=== PATIENT | male | born 1945 | race Caucasian/White ===

== ENCOUNTER 2016-11-04 11:31 | Inpatient (IN) | payer OTHER ==
[~2016-11-04] VITALS: Ht 177.8 cm; Wt 85.0 kg
[2016-11-04] MEDS ORDERED: SODIUM CHLORIDE 0.9% 1000ML 1,000 ML IV STA (11:39)
[2016-11-04 12:34] LABS: BASO % 0.3 %; BASO ABS # 0.03 K/uL (0-0.2); COMPLETE YES; EOS % 2.3 %; HEMATOCRIT 45.9 % (42-52); IG% 0.6 %; LYMPH % 29.5 %; LYMPH ABS # 3.11 K/uL (1.2-3.4); MEAN CELL VOLUME 86.4 fL (80-100); MEAN CORPUSCULAR HEMOGLOBIN 30.5 pg (25-34); MEAN CORPUSCULAR HGB CONC 35.3 g/dl (32-36); MEAN PLATELET VOLUME 9.8 fL (7.4-10.4); MONO % 6.8 %; NEUT % 60.5 %; PLATELET COUNT 254 K/uL (130-400); RED BLOOD COUNT 5.31 M/uL (4.7-6.1); WHITE BLOOD COUNT 10.54 K/uL (4.8-10.8)
[2016-11-04 12:43] LABS: PARTIAL THROMBOPLASTIN RATIO 1.2; PROTHROMBIN TIME (PATIENT) 10.5 SECONDS (9.0-12.0)
[2016-11-04 12:58] LABS: BUN/CREATININE RATIO 11.3 (10-20); CREATININE 1.5 mg/dl (0.60-1.40); THYROID STIMULATING HORMONE 1.87 uIu/ml (0.300-4.500)
[2016-11-04 13:08] LABS: BETA-HYDROXYBUTYRATE 1.19 mg/dL (0.2-2.81)
[2016-11-04] MEDS ORDERED: PIPERACILLIN/TAZOBACTAM 4.5 GM/100ML D5W IV STA (13:12)
--- NOTE | 2016-11-04 13:20 | DIAGNOSTIC IMAGING REPORT ---
LEFT FOOT 3 VIEWS CLINICAL HISTORY: Cellulitis. Pain and swelling. FINDINGS: 3 views of left foot are obtained. No prior studies are available for comparison at the time of dictation. The skeletal structures are osteopenic. No fracture is seen. There is no bony erosion or periostitis. Mild arthritic change is noted at the first metatarsophalangeal joint. Enthesophyte is noted the base of the fifth metatarsal. There is a large dorsal calcaneal enthesophyte. Atherosclerotic calcification is observed in the regional arteries. Mild soft tissue swelling is suggested in the forefoot. IMPRESSION: 1. Osteopenia, mild degenerative change, and dorsal heel spur as above. No acute bony abnormality is identified in the left foot. 2. Mild soft tissue swelling is noted in the forefoot and there is advanced atherosclerotic calcification of the regional arteries. Electronically signed by: Oscar Bishop M.D. 11/04/2016 1:18 PM Dictated Date/Time: 11/04/2016 1:17 PM
--- NOTE | 2016-11-04 13:31 | DIAGNOSTIC IMAGING REPORT ---
CT SCAN OF THE BRAIN WITHOUT IV CONTRAST CLINICAL HISTORY: Change in mental status. COMPARISON STUDY: No priors. TECHNIQUE: Unenhanced axial CT scan of the brain is performed from the vertex to the skull base. CT DOSE: 614.27 mGy.cm FINDINGS: Brain parenchyma: There are age-related involutional changes noting minimal subcortical and periventricular microangiopathic change. There is no hemorrhage, mass effect, or evidence of acute territorial ischemia by CT criteria. Ferguson-white matter is preserved. No extra-axial fluid collection is seen. Ventricles, sulci, cisterns: Prominent secondary to involutional change. Intracranial vasculature: There is atherosclerotic calcification of the cavernous carotid and vertebral arteries. Calvarium: Unremarkable. Sinuses and mastoids: The visualized paranasal sinuses are clear. The mastoid air cells are well pneumatized. Orbits: The bony orbits are grossly intact. IMPRESSION: There is no hemorrhage, mass effect, or evidence of acute territorial ischemia by CT criteria. Electronically signed by: Oscar Bishop M.D. 11/04/2016 1:29 PM Dictated Date/Time: 11/04/2016 1:27 PM
[2016-11-04] MEDS ORDERED: MULTTAB58 PO (13:34)
[2016-11-04] MEDS ORDERED: OMEG10007 PO (13:34)
[2016-11-04] MEDS ORDERED: THIA50TA3 PO (13:34)
[2016-11-04] MEDS ORDERED: NovoLIN-R INSULIN PER UNIT CHARGE IV STA (15:05)
--- NOTE | 2016-11-04 15:54 | DIAGNOSTIC IMAGING REPORT ---
ULTRASOUND LEFT LOWER EXTREMITY VENOUS CLINICAL HISTORY: Left leg swelling and erythema. COMPARISON STUDY: No priors. TECHNIQUE: Real-time, grayscale, and color Doppler sonography of the deep veins of the left lower extremity was performed from the inguinal crease to the calf. Compression and augmentation were utilized. FINDINGS: There is no sonographic evidence of deep venous thrombosis identified in the left lower extremity. The common femoral, superficial femoral, and popliteal veins are patent and normally compressible. The greater saphenous vein and the profunda femoris vein at the junction with the common femoral vein are clear. The visualized calf veins are patent. IMPRESSION: There is no sonographic evidence of deep venous thrombosis identified in the left lower extremity. Electronically signed by: Oscar Bishop M.D. 11/04/2016 3:52 PM Dictated Date/Time: 11/04/2016 3:52 PM
--- NOTE | 2016-11-04 16:10 | History and Physical ---
History & Physical Date & Time of Service: Nov 04, 2016 at 16:09 Chief Complaint: Infected Foot/Confusion Primary Care Physician: No Doctor, Assigned Past Medical/Surgical History Medical Problems: (1) Diabetes Status: Chronic Family History Patient reports no known family medical history. Social History Smoking Status: Never Smoker Allergies Coded Allergies: No Known Allergies (Unverified , 11/04/16) Home Medications Scheduled Fish Oil ([place]-3), 1 CAP PO DAILY Multiple Vitamin (Multivitamin), 1 TAB PO DAILY Thiamine Hcl (Vitamin B-1), 50 MG PO DAILY Physical Exam Vital Signs Date Time Temp Pulse Resp B/P Pulse Ox O2 Delivery O2 Flow Rate FiO2 11/04/16 13:49 73 20 150/88 94 11/04/16 12:33 75 20 171/97 94 11/04/16 12:22 96 Room Air 11/04/16 11:34 36.7 85 18 169/93 95 Room Air Diagnostics Laboratory Results Results Past 24 Hours Test 11/04/16 12:05 Range/Units White Blood Count 10.54 4.8-10.8 K/uL Red Blood Count 5.31 4.7-6.1 M/uL Hemoglobin 16.2 14.0-18.0 g/dL Hematocrit 45.9 42-52 % Mean Corpuscular Volume 86.4 80-100 fL Mean Corpuscular Hemoglobin 30.5 25-34 pg Mean Corpuscular Hemoglobin Concent 35.3 32-36 g/dl Platelet Count 254 130-400 K/uL Mean Platelet Volume 9.8 7.4-10.4 fL Neutrophils (%) (Auto) 60.5 % Lymphocytes (%) (Auto) 29.5 % Monocytes (%) (Auto) 6.8 % Eosinophils (%) (Auto) 2.3 % Basophils (%) (Auto) 0.3 % Neutrophils # (Auto) 6.38 1.4-6.5 K/uL Lymphocytes # (Auto) 3.11 1.2-3.4 K/uL Monocytes # (Auto) 0.72 0.11-0.59 K/uL Eosinophils # (Auto) 0.24 0-0.5 K/uL Basophils # (Auto) 0.03 0-0.2 K/uL RDW Standard Deviation 38.7 36.4-46.3 fL RDW Coefficient of Variation 12.2 11.5-14.5 % Immature Granulocyte % (Auto) 0.6 % Immature Granulocyte # (Auto) 0.06 0.00-0.02 K/uL Prothrombin Time 10.5 9.0-12.0 SECONDS Prothromb Time International Ratio 1.0 0.9-1.1 Activated Partial Thromboplast Time 30.2 21.0-31.0 SECONDS Partial Thromboplastin Ratio 1.2 Sodium Level 137 136-145 mmol/L Potassium Level 4.0 3.5-5.1 mmol/L Chloride Level 98 98-107 mmol/L Carbon Dioxide Level 31 21-32 mmol/L Anion Gap 8.0 3-11 mmol/L Blood Urea Nitrogen 17 7-18 mg/dl Creatinine 1.50 0.60-1.40 mg/dl Est Creatinine Clear Calc Drug Dose 46.6 ml/min Estimated GFR () 53.5 Estimated GFR (Non- 46.2 BUN/Creatinine Ratio 11.3 10-20 Random Glucose 469 70-99 mg/dl Calcium Level 9.0 8.5-10.1 mg/dl Magnesium Level 2.0 1.8-2.4 mg/dl Total Bilirubin 0.7 0.2-1 mg/dl Direct Bilirubin 0.1 0-0.2 mg/dl Aspartate Amino Transf (AST/SGOT) 15 15-37 U/L Alanine Aminotransferase (ALT/SGPT) 28 12-78 U/L Alkaline Phosphatase 110 45-117 U/L Total Protein 7.8 6.4-8.2 gm/dl Albumin 3.5 3.4-5.0 gm/dl Lipase 212 73-393 U/L Beta-Hydroxybutyric Acid 1.19 0.2-2.81 mg/dL Thyroid Stimulating Hormone (TSH) 1.870 0.300-4.500 uIu/ml Microbiology Results 11/04/16 Blood Culture, Received Pending 11/04/16 Blood Culture, Received Pending Impression VTE Prophylaxis VTE Risk Assessment Done? Y/N: Yes Risk Level: Moderate
--- NOTE | 2016-11-04 16:13 | DIAGNOSTIC IMAGING REPORT ---
ULTRASOUND LEFT LOWER EXTREMITY ARTERIAL CLINICAL HISTORY: Left leg swelling and erythema. COMPARISON STUDY: No priors. TECHNIQUE: Real-time, grayscale, and color Doppler sonography of the arteries of the left lower extremity is performed from the inguinal crease to the foot. Ankle-brachial indices were not assessed due to the presence of arterial thrombus. FINDINGS: Moderate echogenic shadowing atherosclerotic plaque is seen throughout the arteries of the left lower extremity. There are triphasic arterial waveforms in the left common femoral artery with velocities measuring up to 91 cm/s. The left profundus femoris artery is patent with velocities measuring up to 100 cm/s. Triphasic arterial waveforms are seen in the proximal and mid portions of the superficial femoral artery. Velocities proximally measure up to 106 cm/s, and velocities in the midportion measure up to 75 cm/s. There are monophasic arterial waveforms in the distal superficial femoral artery with diminished velocities measuring up to 48 cm/s. There is complete thrombosis identified throughout the popliteal artery. No flow is seen within the posterior tibial artery. Branch collateral vessels supply the anterior tibial and peroneal arteries which appear patent with diminished flow and monophasic arterial waveforms. Velocities in the peroneal and anterior tibial arteries measure up to 24 cm/s. The dorsalis pedis artery is patent with velocities measuring up to 11 cm/s. IMPRESSION: 1. 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 2. There are monophasic waveforms with diminished flow within the anterior tibial and peroneal arteries which are supplied by collateral vessels and patent to the ankle. See above discussion. Dictated: 11/04/2016 3:52 PM Transcribed: 11/04/2016 4:12 PM [email or web address] Electronically signed by: Oscar Bishop M.D. 11/04/2016 4:31 PM Dictated Date/Time: 11/04/2016 3:52 PM
[2016-11-04] MEDS ORDERED: MAGNESIUM HYDROXIDE SUSP 30 ML UDC PO PRN (16:15)
[2016-11-04] MEDS ORDERED: ONDANSETRON INJ 2 MG/ML 2 ML VIAL IV PRN (16:15)
[2016-11-04] MEDS ORDERED: GLUCOSE 10 TABS/TUBE PO PRN (16:15)
[2016-11-04] MEDS ORDERED: GLUCOSE 40% GEL 15 GM TUBE PO PRN (16:15)
[2016-11-04] MEDS ORDERED: GLUCAGON FOR INJ 1 MG VIAL SQ PRN (16:15)
[2016-11-04] MEDS ORDERED: DEXTROSE 50% 50 ML SYR IV PRN (16:15)
[2016-11-04] MEDS ORDERED: ALUMINUM/MAGNESIUM/SIMETH (MAALOX MAX) 30 ML UDC PO PRN (16:15)
[2016-11-04] MEDS ORDERED: ZOLPIDEM TARTRATE 5 MG TAB PO PRN (16:15)
[2016-11-04] MEDS ORDERED: PHARMACY GLYCEMIC MGMT CONSULT PRN (16:27)
[2016-11-04] MEDS ORDERED: POLYETHYLENE (MIRALAX) 17 GM PACK PO PRN (16:30)
[2016-11-04] MEDS ORDERED: NovoLIN-R INSULIN PER UNIT CHARGE SQ STA (16:36)
[2016-11-04 16:45] VITALS: O2SAT 97; BMI 26.9
[2016-11-04] MEDS ORDERED: ASPIRIN 81 MG ECTAB PO STA (16:57)
--- NOTE | 2016-11-04 17:11 | Pharmacy Progress Note ---
Glycemic Control Intl Consult Date of Service Nov 04, 2016. Scope Glycemic Pharmacist consulted by Dr Finch on 11/04/16 for glycemic control and to write orders per [facility] inpatient glycemic control protocol Objective Weight (Kilograms): 85.000 Accuchecks BSG (last 24hrs): Test 11/04/16 12:05 Random Glucose 469 mg/dl (70-99) Laboratory Data (last 24hrs) Test 11/04/16 12:05 Anion Gap 8.0 mmol/L BUN/Creatinine Ratio 11.3 Blood Urea Nitrogen 17 mg/dl Creatinine 1.50 mg/dl Potassium Level 4.0 mmol/L Sodium Level 137 mmol/L White Blood Count 10.54 K/uL Red Blood Count 5.31 M/uL Hemoglobin 16.2 g/dL Hematocrit 45.9 % Mean Corpuscular Volume 86.4 fL Mean Corpuscular Hemoglobin 30.5 pg Mean Corpuscular Hemoglobin Concent 35.3 g/dl Platelet Count 254 K/uL Mean Platelet Volume 9.8 fL Neutrophils (%) (Auto) 60.5 % Lymphocytes (%) (Auto) 29.5 % Monocytes (%) (Auto) 6.8 % Eosinophils (%) (Auto) 2.3 % Basophils (%) (Auto) 0.3 % Neutrophils # (Auto) 6.38 K/uL Lymphocytes # (Auto) 3.11 K/uL Monocytes # (Auto) 0.72 K/uL Eosinophils # (Auto) 0.24 K/uL Basophils # (Auto) 0.03 K/uL HbA1c Test 11/04/16 12:05 Pending Recent Pertinent Medications Outpatient Anti-diabetic Regimen: * N/A The patient is currently ordered/receiving: * Basal insulin: Lantus 15 units every 12 hours * Correctional Insulin: REGULAR Insulin per scale ACHS Goal Range: Low 100 mg/dL - High 140 mg/dL Correction Factor: 20 mg/dL/unit * Prandial insulin: Per carb ratio of 1 unit per 15 grams CHO consumed Risk Factors for Insulin Resistance: * Infection * Diet Assessment & Plan ASSESSMENT: * 71yo T2DM male with unknown degree of outpatient control. Presuming that outpatient control is poor based on significantly elevated blood sugar and non- adherence with outpatient regimen. * Pt with severe hyperglycemia on admission secondary to uncontrolled diabetes, stress, and infection. No hyperglycemic crisis identified- Pt will just need SQ basal bolus insulin regimen while admitted to control hyperglycemia. Will make discharge recs for outpatient regimen once A1c results * Pt is insulin naive therefore will utilize weight/stress based dosing and titrate based on BSG trends. * Pt is ordered Regular insulin for bolus coverage --> will change to NovoLog d /t faster onset and shorter duration. This will help control post-prandial BSGs more effectively and prevent stacking. * Pt ordered bolus of IV regular insulin in the ED (6units) * IV insulin has a very fast onset and offset - this dosing will need followed with either an IV insulin infusion or SQ bolus to prevent immediate rebound hyperglycemia * ADA & AACE recommend a goal blood sugar range 140-180 mg/dl for the majority of critically ill & non-critically ill patients. However, more stringent targets may be selected in individual cases. Will utilize more stringent goal of 110-140mg/dl based on patient age & minimal comorbidities. Additionally, tighter glycemic control is warranted to facilitate wound/infection healing. PLAN FOR INPATIENT GLYCEMIC CONTROL: * Basal insulin with LANTUS 15 units SQ BID - start first dose JEFFREY to prevent re-bound hyperglycemia when IV bolus from ED wears off * Change to NovoLog insulin per scale ACHS or Q6hrs while NPO. * Goal Range: Low 110 mg/dL - High 140 mg/dL * Correction Factor: 30 mg/dL/unit * Nutritional / Prandial insulin per carb ratio of 1 unit per 10 grams CHO consumed * Check A1c * Recommend diabetes education &/or nutritional counseling * Please note that the plan above was derived based on current level of insulin resistance and hospital stress. These recommendations are appropriate for inpatient admission only. Plan of care upon discharge will need to be reassessed to avoid potential outpatient hypo/hyperglycemia. Thank you.
--- NOTE | 2016-11-04 17:11 | EMERGENCY ROOM VISIT NOTE ---
History Report prepared by Jayro: Leoncio Alatorre Under the Supervision of: Dr. Nitin Contreras M.D. First contact with patient: 11:39 Chief Complaint: INFECTION Stated Complaint: INFECTED FOOT/CONFUSION History of Present Illness The patient is a 71 year old male who presents to the Emergency Room with complaints of worsening left foot erythema for the past two weeks. The patient also notes swelling and numbness of the foot but denies pain. The patient's states that he has been limping for the past week. The patient's is also concerned that he has been experiencing increased confusion over the past 4 months. He has also been short of breath with exertion lately. The patient has a history of diabetes but has not checked his sugars or taken any medications for the past five years. He does not have a family doctor. Patient denies LOC, headache, fevers, chills, diaphoresis, visual changes, neck pain, chest pain, nausea, vomiting, abdominal pain, new back pain, melena, hematochezia, urinary symptoms, weakness, lymphadenopathy, or other complaints. Source of History: patient, spouse/significant other Onset: two weeks ago Position: foot (left) Quality: other (erythematous) Timing: worsening Associated Symptoms: + numbness Review of Systems See HPI for pertinent positives and negatives. A total of ten systems were reviewed and were otherwise negative. Past Medical & Surgical Medical Problems: (1) Diabetes (2) Hyperglycemia Family History Patient reports no known family medical history. Social History Smoking Status: Never Smoker Marital Status: Housing Status: lives with family Current/Historical Medications Scheduled Fish Oil (Priddy-3), 1 CAP PO DAILY Multiple Vitamin (Multivitamin), 1 TAB PO DAILY Thiamine Hcl (Vitamin B-1), 50 MG PO DAILY Allergies Coded Allergies: No Known Allergies (Unverified , 11/04/16) Physical Exam Vital Signs Date Time Temp Pulse Resp B/P Pulse Ox O2 Delivery O2 Flow Rate FiO2 11/04/16 16:45 97 Room Air 11/04/16 16:31 70 97 11/04/16 16:30 160/86 11/04/16 16:29 160/95 11/04/16 15:01 67 14 96 11/04/16 15:00 136/88 11/04/16 14:31 67 20 94 11/04/16 14:30 147/87 11/04/16 14:01 68 16 94 11/04/16 14:00 137/82 11/04/16 13:49 73 20 150/88 94 11/04/16 13:35 150/88 11/04/16 12:33 75 20 171/97 94 11/04/16 12:22 96 Room Air 11/04/16 11:34 36.7 85 18 169/93 95 Room Air Physical Exam GENERAL: Awake, alert, well-appearing, in no distress HENT: Normocephalic, atraumatic. Oropharynx unremarkable. EYES: Normal conjunctiva. Sclera non-icteric. NECK: Supple. No nuchal rigidity. FROM. No JVD. RESPIRATORY: Clear to auscultation. CARDIAC: Regular rate, normal rhythm. Extremities warm and well perfused. Pulses equal. ABDOMEN: Soft, non-distended. No tenderness to palpation. No rebound or guarding. No masses. RECTAL: Deferred. MUSCULOSKELETAL: Chest examination reveals no tenderness. The back is symmetrical on inspection without obvious abnormality. There is no CVA tenderness to palpation. No joint edema. LOWER EXTREMITIES: Erythema of the left foot and left lower leg. Skin breakdown left great toe with thickening of the left great toenail. NEURO: Normal sensorium. No sensory or motor deficits noted. SKIN: No rash or jaundice noted. Medical Decision & Procedures ER Provider Diagnostic Interpretation: X ray results as stated below per my interpretation and radiologist interpretation. Other radiology results as stated below per my review and radiologist interpretation LEFT FOOT 3 VIEWS CLINICAL HISTORY: Cellulitis. Pain and swelling. FINDINGS: 3 views of left foot are obtained. No prior studies are available for comparison at the time of dictation. The skeletal structures are osteopenic. No fracture is seen. There is no bony erosion or periostitis. Mild arthritic change is noted at the first metatarsophalangeal joint. Enthesophyte is noted the base of the fifth metatarsal. There is a large dorsal calcaneal enthesophyte. Atherosclerotic calcification is observed in the regional arteries. Mild soft tissue swelling is suggested in the forefoot. IMPRESSION: 1. Osteopenia, mild degenerative change, and dorsal heel spur as above. No acute bony abnormality is identified in the left foot. 2. Mild soft tissue swelling is noted in the forefoot and there is advanced atherosclerotic calcification of the regional arteries. Electronically signed by: Oscar Bishop M.D. 11/04/2016 1:18 PM Dictated Date/Time: 11/04/2016 1:[address] SCAN OF THE BRAIN WITHOUT IV CONTRAST CLINICAL HISTORY: Change in mental status. COMPARISON STUDY: No priors. TECHNIQUE: Unenhanced axial CT scan of the brain is performed from the vertex to the skull base. CT DOSE: 614.27 mGy.cm FINDINGS: Brain parenchyma: There are age-related involutional changes noting minimal subcortical and periventricular microangiopathic change. There is no hemorrhage, mass effect, or evidence of acute territorial ischemia by CT criteria. Ferguson-white matter is preserved. No extra-axial fluid collection is seen. Ventricles, sulci, cisterns: Prominent secondary to involutional change. Intracranial vasculature: There is atherosclerotic calcification of the cavernous carotid and vertebral arteries. Calvarium: Unremarkable. Sinuses and mastoids: The visualized paranasal sinuses are clear. The mastoid air cells are well pneumatized. Orbits: The bony orbits are grossly intact. IMPRESSION: There is no hemorrhage, mass effect, or evidence of acute territorial ischemia by CT criteria. Electronically signed by: Oscar Bishop M.D. 11/04/2016 1:29 PM Dictated Date/Time: 11/04/2016 1:27 PM ULTRASOUND LEFT LOWER EXTREMITY VENOUS CLINICAL HISTORY: Left leg swelling and erythema. COMPARISON STUDY: No priors. TECHNIQUE: Real-time, grayscale, and color Doppler sonography of the deep veins of the left lower extremity was performed from the inguinal crease to the calf. Compression and augmentation were utilized. FINDINGS: There is no sonographic evidence of deep venous thrombosis identified in the left lower extremity. The common femoral, superficial femoral, and popliteal veins are patent and normally compressible. The greater saphenous vein and the profunda femoris vein at the junction with the common femoral vein are clear. The visualized calf veins are patent. IMPRESSION: There is no sonographic evidence of deep venous thrombosis identified in the left lower extremity. Electronically signed by: Oscar Bishop M.D. 11/04/2016 3:52 PM Dictated Date/Time: 11/04/2016 3:52 PM Laboratory Results 11/04/16 12:05 Red Blood Count 5.31, Mean Corpuscular Volume 86.4, Mean Corpuscular Hemoglobin 30.5, Mean Corpuscular Hemoglobin Concent 35.3, Mean Platelet Volume 9.8, Neutrophils (%) (Auto) 60.5, Lymphocytes (%) (Auto) 29.5, Monocytes (%) (Auto) 6.8, Eosinophils (%) (Auto) 2.3, Basophils (%) (Auto) 0.3, Neutrophils # (Auto) 6.38, Lymphocytes # (Auto) 3.11, Monocytes # (Auto) 0.72, Eosinophils # (Auto) 0.24, Basophils # (Auto) 0.03 11/04/16 12:05 Test 11/04/16 12:05 White Blood Count 10.54 K/uL (4.8-10.8) Red Blood Count 5.31 M/uL (4.7-6.1) Hemoglobin 16.2 g/dL (14.0-18.0) Hematocrit 45.9 % (42-52) Mean Corpuscular Volume 86.4 fL (80-100) Mean Corpuscular Hemoglobin 30.5 pg (25-34) Mean Corpuscular Hemoglobin Concent 35.3 g/dl (32-36) Platelet Count 254 K/uL (130-400) Mean Platelet Volume 9.8 fL (7.4-10.4) Neutrophils (%) (Auto) 60.5 % Lymphocytes (%) (Auto) 29.5 % Monocytes (%) (Auto) 6.8 % Eosinophils (%) (Auto) 2.3 % Basophils (%) (Auto) 0.3 % Neutrophils # (Auto) 6.38 K/uL (1.4-6.5) Lymphocytes # (Auto) 3.11 K/uL (1.2-3.4) Monocytes # (Auto) 0.72 K/uL (0.11-0.59) Eosinophils # (Auto) 0.24 K/uL (0-0.5) Basophils # (Auto) 0.03 K/uL (0-0.2) RDW Standard Deviation 38.7 fL (36.4-46.3) RDW Coefficient of Variation 12.2 % (11.5-14.5) Immature Granulocyte % (Auto) 0.6 % Immature Granulocyte # (Auto) 0.06 K/uL (0.00-0.02) Prothrombin Time 10.5 SECONDS (9.0-12.0) Prothromb Time International Ratio 1.0 (0.9-1.1) Activated Partial Thromboplast Time 30.2 SECONDS (21.0-31.0) Partial Thromboplastin Ratio 1.2 Anion Gap 8.0 mmol/L (3-11) Est Creatinine Clear Calc Drug Dose 46.6 ml/min Estimated GFR () 53.5 Estimated GFR (Non- 46.2 BUN/Creatinine Ratio 11.3 (10-20) Calcium Level 9.0 mg/dl (8.5-10.1) Magnesium Level 2.0 mg/dl (1.8-2.4) Total Bilirubin 0.7 mg/dl (0.2-1) Direct Bilirubin 0.1 mg/dl (0-0.2) Aspartate Amino Transf (AST/SGOT) 15 U/L (15-37) Alanine Aminotransferase (ALT/SGPT) 28 U/L (12-78) Alkaline Phosphatase 110 U/L (45-117) Total Protein 7.8 gm/dl (6.4-8.2) Albumin 3.5 gm/dl (3.4-5.0) Lipase 212 U/L (73-393) Beta-Hydroxybutyric Acid 1.19 mg/dL (0.2-2.81) Thyroid Stimulating Hormone (TSH) 1.870 uIu/ml (0.300-4.500) Laboratory results reviewed by me Medications Administered Medications (Trade) Dose Ordered Sig/Familia Route Start Time Stop Time Status Last Admin Dose Admin Sodium Chloride (Nss 1000ml) 1,000 ml @ 125 mls/hr Q8H STAT IV 11/04/16 11:39 11/04/16 19:38 11/04/16 12:47 125 MLS/HR Piperacillin Sod/ Tazobactam Sod (Zosyn Iv) 4.5 gm NOW STAT IV 11/04/16 13:12 11/04/16 13:13 DC 11/04/16 13:36 4.5 GM Insulin Human Regular (novoLIN-R U-100 PER UNIT) 6 units NOW STAT IV 11/04/16 15:05 11/04/16 15:07 DC 11/04/16 16:27 6 UNITS ECG Indication: SOB/dyspnea Rate (beats per minute): 78 Rhythm: normal sinus Findings: Q waves (anterior, lateral, and inferior leads), no acute ischemic change, left axis deviation ED Course 1138: The patient was evaluated by the medical student. The case was discussed with her. 1139: NSS 1000 ml @ 125 mls/hr, 1225: The patient was evaluated in room C5. A complete history and physical exam was performed. 1312: Zosyn 4.5 gm IV. 1430: Updated the patient. 1505: Insulin Human Regular 6 units IV. 1517: Discussed the case with Karena Paulson. The patient will be evaluated. Medical Decision Triage Nursing notes reviewed. The patient's presentation and history were concerning for leg swelling and pain. Etiologies such as cellulitis, abscess, MRSA infection, dermatitis, drug eruption,necrotizing fasciitis, DVT as well as others were entertained. the patient was evaluated. Clinically he was doing relatively well. He had some redness and discoloration to the left leg. He did have pulses that they were diminished. He has no clear ulceration but does have some skin breakdown on the left great toe. X-ray imaging did not reveal any evidence of osteomyelitis. Peripheral artery disease was noted. He underwent ultrasound imaging. He has peripheral artery disease noted on ultrasound imaging. No DVT noted. The patient was found to have a normal CBC and chemistry panel except for severe hyperglycemia. He was hydrated and given IV insulin. The patient has cellulitis. He was given IV Zosyn. He will need further evaluation and management. He also has untreated diabetes. Consultation was made with internal medicine. The patient was evaluated in the Emergency Room for further management. The chart was completed utilizing [employer] Speech voice recognition software. Grammatical errors, random word insertions, pronoun errors, and incomplete sentences are an occasional consequence of this system due to software limitations, ambient noise, and hardware issues. Any formal questions or concerns about the content, text, or information contained within the body of this dictation should be directly addressed to the physician for clarification. Consults Time Called: 1509 Consulting Physician: Karena Paulson Returned Call: [phone]: Discussed the case with Karena Paulson. The patient will be evaluated. Impression Primary Impression: Cellulitis of left lower extremity Additional Impressions: Confusion Hyperglycemia PAD (peripheral artery disease) Scribe Attestation The scribe's documentation has been prepared under my direction and personally reviewed by me in its entirety. I confirm that the note above accurately reflects all work, treatment, procedures, and medical decision making performed by me. Departure Information Dispostion Being Evaluated By Hospitalist Referrals No Doctor, Assigned (PCP) Patient Instructions My [facility] Problem Qualifiers
[2016-11-04] MEDS ORDERED: PIPERACILL/TAZOBAC CONSULT ACTIVE PRN (17:30)
[2016-11-04] MEDS ORDERED: ASPI-435 PO (17:32)
[2016-11-04] MEDS ORDERED: SODIUM CHLORIDE 0.9% 1000ML 1,000 ML IV ONE (18:00)
[2016-11-04] MEDS ORDERED: HydrALAZINE HCL 20 MG/ML VIAL IV. PRN (18:00)
[2016-11-04] MEDS ORDERED: INSULIN GLARGINE SOLOSTAR 100 UNITS/ML 3 ML PEN SC SCH (18:00)
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
[2016-11-04 18:32] VITALS: BP 172/69; PULSE 69; TEMP 36.7; O2SAT 95
[2016-11-04] MEDS: INSULIN ASPART 100 UNITS/ML 3 ML PEN SC SCH ×2 (18:51→23:26)
[2016-11-04 18:59] VITALS: O2SAT 95
--- NOTE | 2016-11-04 19:10 | DIAGNOSTIC IMAGING REPORT ---
SINGLE VIEW CHEST CLINICAL HISTORY: Dyspnea. FINDINGS: An AP, portable, upright chest radiograph is obtained. No prior studies are available for comparison at the time of dictation. The examination is degraded by portable technique and patient rotation. The cardiomediastinal silhouette is unremarkable. Nonspecific interstitial thickening is identified. There is bibasilar atelectasis. No airspace consolidation is seen typical for pneumonia and there is no large pleural effusion. No pneumothorax is seen. The skeletal structures are osteopenic. The bony thorax is grossly intact. IMPRESSION: No acute cardiopulmonary abnormality. Electronically signed by: Oscar Bishop M.D. 11/04/2016 7:07 PM Dictated Date/Time: 11/04/2016 7:06 PM
[2016-11-04] MEDS: PIPERACILL/TAZOBAC IV 3.375 GM in DEXTROSE 5% 100ML 100 ML IV SCH (20:47)
[2016-11-04] MEDS: HEPARIN SOD 5000 UNIT/0.5 ML CARP SQ SCH (20:52)
[2016-11-04] MEDS: ACETAMINOPHEN 325 MG TAB PO PRN (20:59)
[2016-11-05] VITALS: O2SAT 95
[2016-11-05 00:15] VITALS: BP 156/91; PULSE 71; TEMP 36.7; O2SAT 96
[2016-11-05 02:13] LABS: URINE APPEARANCE CLEAR (CLEAR); URINE BILIRUBIN NEG (NEG); URINE COLOR YELLOW; URINE EPITHELIAL CELL AUTO 0-5 /lpf (0-5); URINE NITRITE NEG (NEG); URINE PH 6.5 (4.5-7.5); URINE SPECIFIC GRAVITY 1.028 (1.000-1.030); UROBILINOGEN NEG (NEG)
[2016-11-05 02:14] LABS: MANUAL MICROSCOPIC REQUIRED? NO; REVIEW REQ? NO
[2016-11-05] MEDS: PIPERACILL/TAZOBAC IV 3.375 GM in DEXTROSE 5% 100ML 100 ML IV SCH ×2 (03:02→10:10)
[2016-11-05] MEDS: HEPARIN SOD 5000 UNIT/0.5 ML CARP SQ SCH ×3 (05:27→21:23)
[2016-11-05 07:00] VITALS: BP 162/96; PULSE 66; TEMP 36.6; O2SAT 96
[2016-11-05 07:02] LABS: HEMATOCRIT 43.4 % (42-52); MEAN CORPUSCULAR HEMOGLOBIN 30.6 pg (25-34); MEAN CORPUSCULAR HGB CONC 34.8 g/dl (32-36); MEAN PLATELET VOLUME 9.8 fL (7.4-10.4); PLATELET COUNT 222 K/uL (130-400); RED BLOOD COUNT 4.93 M/uL (4.7-6.1); WHITE BLOOD COUNT 8.78 K/uL (4.8-10.8)
[2016-11-05 07:20] LABS: BUN/CREATININE RATIO 13.3 (10-20); CALCIUM 8.6 mg/dl (8.5-10.1); CREATININE 1.1 mg/dl (0.60-1.40); POTASSIUM 4.1 mmol/L (3.5-5.1)
[2016-11-05 07:23] LABS: CHOLESTEROL/HDL RATIO 4.5
[2016-11-05] MEDS: ASPIRIN 81 MG ECTAB PO SCH (07:30)
[2016-11-05] MEDS: THIAMINE HCL 50 MG TAB PO SCH (07:30)
[2016-11-05] MEDS: OMEGA-3 (PURIFIED FISH OIL) 1 GM CAP PO SCH (07:30)
[2016-11-05] MEDS: AMLODIPINE BESYLATE 5 MG TAB PO SCH (07:30)
[2016-11-05] MEDS: MULTIVITAMIN TAB PO SCH (07:30)
[2016-11-05 08:00] VITALS: O2SAT 96
[2016-11-05] MEDS ORDERED: ASPIRIN 81 MG ECTAB PO SCH (08:00)
[2016-11-05 08:21] LABS: ESTIMATED AVERAGE GLUCOSE 283 mg/dl; HA1C FLAG Normal (Normal)
[2016-11-05] MEDS ORDERED: INSULIN GLARGINE SOLOSTAR 100 UNITS/ML 3 ML PEN SC SCH ×3 (09:00→21:00)
[2016-11-05] MEDS: INSULIN ASPART 100 UNITS/ML 3 ML PEN SC SCH ×4 (09:02→21:11)
--- NOTE | 2016-11-05 10:35 | Surgery Consultation ---
Consultation Date of Service Nov 05, 2016. Chief Complaint L great toe wound, PAD History of Present Illness The patient is a 71 year old male admitted with L great toe infection and PAD noted on US, seen in consultation today. Pt states he recently got a new pair of boots, but his size was not available, so he got a larger size which caused his foot to move around and he developed this wound on his L great toe. Denies claudication while walking his 2 dogs at least a mile, nor while walking on [place]. States he is typically a very active person. Denies rest pain or other nonhealing wounds. States his toe/foot was swollen, but is significantly improved. Denies SALAZAR, fever, chills, chest pain, SOB, abd pain, N/V, rest pain, claudication, other complaints. US demonstrates likely popliteal occlusion with monophasic distal runoff. Vitals Vital Signs Past 12 Hours Date Time Temp Pulse Resp B/P Pulse Ox O2 Delivery O2 Flow Rate FiO2 11/05/16 08:00 96 Room Air 11/05/16 07:00 36.6 66 18 162/96 96 Room Air 11/05/16 00:15 36.7 71 20 156/91 96 Room Air 11/05/16 00:00 95 Room Air Allergies Coded Allergies: No Known Allergies (Unverified , 11/04/16) Home Medications Scheduled Aspirin (Aspirin 81), 81 MG PO DAILY Fish Oil ([place]-3), 1 CAP PO DAILY Multiple Vitamin (Multivitamin), 1 TAB PO DAILY Thiamine Hcl (Vitamin B-1), 50 MG PO DAILY Problem List Medical Problems: (1) DM type 2 (diabetes mellitus, type 2) (2) Dyslipidemia (3) History of positive PPD (4) HTN (hypertension) (5) Hyperglycemia Surgical Problems: (1) No significant past surgical history Surgical / Medical History Hx Cardiac Surgery: No Hx Abdominal Surgery: No Hx Cancer Surgery: No Hx Thoracic Surgery: No Hx Orthopedic: No Hx Urinary Tract Surgery: No HX Other Surgery: Yes (tonsillectomy) Family History FH: CAD (coronary artery disease) FATHER FH: stroke FATHER Social History Smoking Status: Former Smoker Hx Tobacco Use In Past Year?: No (quit about 20 years ago) Hx Alcohol Use - Type & Amnt: Yes (6 to 7 beers a week) Hx Substance Use -Type & Amnt: No Review of Systems Constitutional: No chills, No fever, No malaise Skin: + change in color Eyes: No visual changes ENMT: No sore throat Respiratory: No POLK, No cough, No hemoptysis, No short of breath Cardiovascular: + edema, No chest pain, No intermittent claudication, No palpitations, No syncope Gastrointestinal: No abdominal pain, No nausea, No vomiting Neurologic: No dizziness, No headache, No lethargy, No numbness, No tingling Physical Exam Constitutional: General Apperance: heathly-appearing, well-nourished, well-developed Level of Distress: NAD Psychiatric: Mental Status: active & alert, normal mood, normal affect Orientation: oriented except where noted, to time, to place, to person Memory: recent memory normal, remote memory normal Head: normocephalic, atraumatic Eyes: EOM: EOMI ENMT: normal ENT inspection, hearing grossly normal Neck: supple, trachea midline Lungs: Respiratory effort: no dyspnea Auscultation: no wheezing, no rales/crackles, no rhonchi, decreased breath sounds Cardiovascular: Apical Impulse: not displaced Heart Auscultation: RRR, no rubs, no gallops Peripheral Pulses: Pulses: full and equal, in all extremities except if noted Bruits: none appreciated Carotid Pulse: normal on the left, normal on the right Brachial Pulses: normal on the left, normal on the right Radial Pulse: normal on the left, normal on the right Femoral Pulse: normal on the left, normal on the right Popliteal Pulse: doppler Posterior Tibialis Pulse: pertinent finding (monophasic LLE, biphasic RLE) Dorsalis Pedis Pulse: pertinent finding (LLE monophasic, RLE biphasic) Abdomen: Bowel Sounds: normal Inspection & Palpation: soft, non-distended, no tenderness, guarding & rebound Musculoskeletal: normal strength (5/5 throughout), normal tone Extremities: Upper Right: no cyanosis, no edema, no varicosities Upper Left: no cyanosis, no edema, no varicosities Lower Right: no cyanosis, no edema, no varicosities, no palpable cord, no ulcers Lower Left: pertinent finding (L great toe with distal fluid filled blisters and erythema, cracked skin over punctate purple lesion. brisk cap refill.) Neurologic: Cranial Nerves: grossly intact Sensation: grossly intact Assessment and Plan ASSESSMENT and PLAN: L great toe infection PAD Pt appears asymptomatic from PAD. Pt discussed with Dr Grimm, does not recommend vascular surgical intervention at this time. Recommend local wound care and abx. Will reevaluate in office in 2 weeks. Please call if needed.
[2016-11-05] MEDS ORDERED: PERFLUTREN LIPID MICROSPHERE (DEFINITY) IV ONE (11:42)
[2016-11-05 13:32] VITALS: Ht 177.8 cm; Wt 85.0 kg
--- NOTE | 2016-11-05 14:35 | Pharmacy Progress Note ---
Glycemic Control: Progress Nt Date of Service Nov 05, 2016. Scope Glycemic Pharmacist consulted by Dr Finch on 11/04/16 for glycemic control and to write orders per [facility] inpatient glycemic control protocol. Objective Accuchecks BSG (last 24hrs): Test 11/04/16 17:34 11/04/16 18:35 11/04/16 20:00 11/04/16 22:05 Bedside Glucose 185 mg/dl (70-99) 197 mg/dl (70-99) 247 mg/dl (70-99) 238 mg/dl (70-99) Test 11/05/16 06:24 11/05/16 07:30 11/05/16 11:56 Random Glucose 224 mg/dl (70-99) Bedside Glucose 226 mg/dl (70-99) 211 mg/dl (70-99) Laboratory Data (last 24hrs) HbA1c: Test 11/04/16 12:05 Hemoglobin A1c 11.5 % (4.5-5.6) H Recent Pertinent Medications Outpatient Anti-diabetic Regimen: * N/A The patient is currently ordered/receiving: * Basal insulin: Lantus 15 units every 12 hours * Correctional Insulin: NovoLog Insulin per scale ACHS Goal Range: Low 100 mg/dL - High 140 mg/dL Correction Factor: 20 mg/dL/unit * Prandial insulin: Per carb ratio of 1 unit per 6 grams CHO consumed Risk Factors for Insulin Resistance: * Infection * Diet Assessment & Plan ASSESSMENT: * 71yo T2DM male with poor outpatient control per recent A1c = 11.5% today. Pt will need antidiabetic regimen at discharge. Pt has failed metformin in the past. Based on significantly elevated A1c pt will need combination injectable therapy. * Patient is currently receiving ~67 units of insulin over the past 24hrs * 35 units of basal insulin * 32 units of prandial/correctional insulin * BSGs ranging 197 - 238 over the past 24hrs * Anticipating insulin regimen will need increase for the next 24hrs, but then may need decreased for discharge * AM Fasting BSG = 226mg/dl which is above goal range therefore Basal insulin needs increased * Post-prandial BSGs are elevated/BSGs rise throughout the day therefore Tighten CF/CR * ADA & AACE recommend a goal blood sugar range 140-180 mg/dl for the majority of critically ill & non-critically ill patients. However, more stringent targets may be selected in individual cases. Will utilize more stringent goal of 110-140mg/dl based on patient age & minimal comorbidities. Additionally, tighter glycemic control is warranted to facilitate wound/infection healing. PLAN FOR INPATIENT GLYCEMIC CONTROL: * INCREASE Basal insulin with LANTUS 20 units SQ BID, continue to titrate based on fasting BSG * Will convert to once daily dosing for easy outpatient dosing to increase compliance * TIGHTEN NovoLog insulin per scale ACHS or Q6hrs while NPO. * Goal Range: Low 110 mg/dL - High 140 mg/dL * Correction Factor: 20 mg/dL/unit * Nutritional / Prandial insulin per carb ratio of 1 unit per 6 grams CHO consumed * Will recommend NovoLog fixed dosing with the largest meal(s) of the day for outpatient use * Add A1c to discharge instructions to be communicated to PCP for further antidiabetic regimen adjustments post-discharge. * Recommend diabetes education &/or nutritional counseling * Please note that the plan above was derived based on current level of insulin resistance and hospital stress. These recommendations are appropriate for inpatient admission only. Plan of care upon discharge will need to be reassessed to avoid potential outpatient hypo/hyperglycemia. Thank you.
[2016-11-05] MEDS: ACETAMINOPHEN 325 MG TAB PO PRN (15:44)
[2016-11-05 15:53] VITALS: BP 132/82; PULSE 68; TEMP 36.8; O2SAT 95
[2016-11-05 16:00] VITALS: O2SAT 95
--- NOTE | 2016-11-05 16:16 | ECHOCARDIOGRAM REPORT ---
*NOTICE TO RECEIVING [employer] This information is strictly Confidential and protected under [place] law. [place] law prohibits you from making any further disclosure of this information unless further disclosure is expressly permitted by the written consent of the person to whom it pertains or is authorized by law. A general authorization for the release of medical or other information is not sufficient for this purpose. Hospital accepts no responsibility if the information is made available to any other person, INCLUDING THE PATIENT. Interpretation Summary * Name: RADHA NIELSON Study Date: 11/05/2016 10:50 AM BP: 156/91 mmHg * Patient [facility]: [facility]\S\[id number] HR: 71 * : 1945 (M/d/yyyy) Gender: Male Height: 70 in * Age: 71 yrs Ethnicity: [place] Weight: 187 lb * Ordering Physician: Amber Ghotra * Referring Physician: Self, Referred * Performed By: Raul Zacarias RCS * * Reason For Study: POLK * BSA: 2.0 m2 * -- Conclusions -- * Normal LV chamber size and wall thickness. * Mildly reduced LV systolic function, EF 45-50%. * Moderate hypokinesis of the mid anteroseptal and anterior mcconnell along with the apex. * Grade I diastolic dysfunction. * Aortic valve sclerosis mild, without significant aortic valvular stenosis. * Mild left atrial enlargement. Procedure Details * A complete two-dimensional transthoracic echocardiogram was performed (2D, M-mode, Doppler and color flow Doppler). * A contrast injection of Definity was performed to improve assessment of LV function. * Contrast was injected into an intravenous site in the right arm. * One vial of Definity ultrasound contrast was diluted in normal saline to a total volume of 10 ml. A total of '2' ml of solution was administered during imaging. * Lot # [id number] of Definity utilized for procedure. * Expiration date . * The attending nurse who injected the contrast agent was Walter Tatum RN. Left Ventricle * The left ventricle is normal in size. * There is no thrombus. * There is normal left ventricular wall thickness. * Ejection Fraction = 45-50%. * Left ventricular systolic function is mildly reduced. * Moderate hypokinesis of the mid anteroseptal and anterior mcconnell along with the apex. Right Ventricle * The right ventricular cavity size is normal (basal dimension <4.2 cm in right ventricular apical 4-chamber view). * The right ventricular systolic function is normal as assessed by tricuspid annular plane systolic excursion (TAPSE) (normal >1.5 cm). Atria * The left atrium is mildly dilated. * Right atrial size is normal. Mitral Valve * There is moderate mitral annular calcification. * Mitral stenosis is absent. * There is no mitral regurgitation noted. Tricuspid Valve * The tricuspid valve is normal in structure and function. Aortic Valve * The aortic valve is trileaflet. * Aortic valve sclerosis mild, without significant aortic valvular stenosis. * There is no significant aortic regurgitation. Pulmonic Valve * The pulmonary valve is not well seen, but the Doppler examination is normal without significant regurgitation or stenosis. Great Vessels * The aortic root is normal size. Pericardium/Pleural * There is no pericardial effusion. Left Ventricular Diastolic Function * Grade I diastolic dysfunction, (abnormal relaxation pattern). MMode 2D Measurements and Calculations IVSd 0.97 cm IVSs 1.2 cm LVIDd 4.2 cm LVIDs 3.0 cm LVPWd 1.0 cm LVPWs 1.4 cm IVS/LVPW 0.93 FS 28.3 % EDV(Teich) 77.2 ml ESV(Teich) 34.7 ml EF(Teich) 55.0 % EDV(cubed) 72.4 ml ESV(cubed) 26.7 ml EF(cubed) 63.1 % % IVS thick 27.9 % % LVPW thick 33.9 % LV mass(C)d 136.5 grams LV mass(C)dI 67.3 grams/m\S\2 LV mass(C)s 126.2 grams LV mass(C)sI 62.2 grams/m\S\2 CO(Teich) 3.1 l/min CI(Teich) 1.5 l/min/m\S\2 SV(Teich) 42.5 ml SI(Teich) 20.9 ml/m\S\2 CO(cubed) 3.3 l/min CI(cubed) 1.6 l/min/m\S\2 SV(cubed) 45.7 ml SI(cubed) 22.5 ml/m\S\2 Ao root diam 3.9 cm Ao root area 11.7 cm\S\2 ACS 1.4 cm LA dimension 4.6 cm LA/Ao 1.2 LVAd ap4 50.1 cm\S\2 LVLd ap4 10.1 cm EDV(MOD-sp4) 203.0 ml LVAs ap4 34.5 cm\S\2 LVLs ap4 8.9 cm ESV(MOD-sp4) 110.0 ml EF(MOD-sp4) 45.8 % LVAd ap2 43.5 cm\S\2 LVLd ap2 10.1 cm EDV(MOD-sp2) 150.0 ml LVAs ap2 29.9 cm\S\2 LVLs ap2 9.2 cm ESV(MOD-sp2) 79.0 ml EF(MOD-sp2) 47.3 % CO(MOD-sp4) 6.8 l/min CI(MOD-sp4) 3.3 l/min/m\S\2 SV(MOD-sp4) 93.0 ml SI(MOD-sp4) 45.8 ml/m\S\2 CO(MOD-sp2) 5.2 l/min CI(MOD-sp2) 2.6 l/min/m\S\2 SV(MOD-sp2) 71.0 ml SI(MOD-sp2) 35.0 ml/m\S\2 Doppler Measurements and Calculations MV E max abbey 53.3 cm/sec MV A max abbey 106.6 cm/sec MV E/A 0.50 MV P1/2t max abbey 55.3 cm/sec MV P1/2t 81.7 msec MVA(P1/2t) 2.7 cm\S\2 MV dec slope 198.2 cm/sec\S\2 MV dec time 0.24 sec Ao V2 max 118.4 cm/sec Ao max PG 6.8 mmHg PA V2 max 89.5 cm/sec PA max PG 3.2 mmHg TR max abbey 191.1 cm/sec
--- NOTE | 2016-11-05 17:53 | Progress Note ---
Internal Med Progress Note Date of Service: Nov 05, 2016. Provider Documentation: SUBJECTIVE: feels much better today energy has improved, no confusion , awake/alert , full orientation no pain or discomfort on left toe no fever or chills able ambulate independently OBJECTIVE: Vital Signs-as noted below Exam: General-no sign of distress, comfortable , conversing Eyes-sclera non icteric Lungs-CTA Heart-regular S1/S2 Abdomen-soft, non tender Extremities-left great toe tip small darkened area with surround erythema - improved since yesterday , no drainage Neuro-no focal deficit Lab data as noted below. ASSESSMENT & PLAN: HYPERGLYCEMIA/TYPE 2 DM -NOT ON MEDS; presented with BSG > 400 , no evidence of DKA , normal Hco3 /anion gap , normal BHB -given IV Insulin 6 units in ED -pharmacy consulted for glycemic control appreciate input -Basal insulin dose adjusted -insulin SSI - Hb A1 ~11 -BSG improved after initiation of insulin sliding scale and Basal Lantus software quality analyst consulted , appreciate in out FLORENTINO: resolved due to above follow PRP , avoid NSAID 's /contrast studies when possible LEFT LOWER EXT /TOE CELLULITIS : no evidence of sepsis normal white count , no fever was treated with empiric abx with Zosyn blood /wound culture negative growth appreciate input form wound care nursing HTN : BP elevated on admission added low dose Norvasc will benefit with low dose ACEI once renal function improves PERIPHERAL VASCULAR DISEASE Arterial Doppler of lower ext : 1. 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 Cont ASA vascular surgery consult requested appreciate input had good pulse , no hx of intermittent claudication or resting foot pain as per Dr Barrera no vascular surgical intervention needed at this time. Recommend local wound care and abx. follow up in office in 2 weeks. Fasting lipid panel shows : elevated T chol/TG added Lipitor CONFUSION ; resolved , conversing appropriately possible metabolic encephalopathy due to dehydration , infection , hyperglycemia CT head negative for acute change POLK /SOB /OCCASIONAL CHEST HEAVINESS ; symptom has resolved EKG no evidence of acute ischemia cardiac markers negative ; Cxray -no evidence of cardiac or pulmonary disease possible due to deconditioning , FLORENTINO ECHO : normal Lv function ,no wall motion abnormality IVF to correct dehydration PT/OT eval appreciated stable to be return home FULL CODE DVT PROPHYLAXIS : moderate risk subq heparin DISPOSITION : lives at home with supportive does not have any family physician appointment scheduled with Dr Lion at [facility] will benefit from Home health visiting nurse Social service consulted for discharge planning possible discharge home tomorrow if medically stable Vital Signs: Lab Results:
[2016-11-05] MEDS: ATORVASTATIN 20 MG TAB PO SCH ×2 (21:11→21:34)
[2016-11-06] VITALS: O2SAT 97
[2016-11-06 00:10] VITALS: BP 141/81; PULSE 63; TEMP 36.9; O2SAT 97
[2016-11-06] MEDS: HEPARIN SOD 5000 UNIT/0.5 ML CARP SQ SCH ×2 (06:19→14:16)
[2016-11-06 07:06] VITALS: BP 170/90; PULSE 69; TEMP 36.7; O2SAT 96
[2016-11-06 07:08] LABS: BUN/CREATININE RATIO 16.1 (10-20); CALCIUM 8.9 mg/dl (8.5-10.1); CREATININE 0.95 mg/dl (0.60-1.40); POTASSIUM 3.9 mmol/L (3.5-5.1)
[2016-11-06] MEDS: OMEGA-3 (PURIFIED FISH OIL) 1 GM CAP PO SCH (07:38)
[2016-11-06] MEDS: THIAMINE HCL 50 MG TAB PO SCH (07:38)
[2016-11-06] MEDS: AMLODIPINE BESYLATE 5 MG TAB PO SCH (07:39)
[2016-11-06] MEDS: ASPIRIN 81 MG ECTAB PO SCH (07:39)
[2016-11-06] MEDS: MULTIVITAMIN TAB PO SCH (07:39)
[2016-11-06] MEDS: ACETAMINOPHEN 325 MG TAB PO PRN (07:41)
--- NOTE | 2016-11-06 07:41 | Pharmacy Progress Note ---
Glycemic: Assessment & Plan Date of Service Nov 06, 2016. Assessment & Plan ASSESSMENT: * Pt has received 66units of insulin over the past 24hrs which is yielding adequate control today * BSGs 211, 159,137, 128 over the past 24hrs. * BSGs trending downwards now that Lantus is approaching steady state. * Pt to D/C home today & will need inpatient regimen simplified for outpatient use. * A1c = 11.5% on 11/04/16 Pt will need combination injectable therapy in addition to healthy eating, weight control, increased physical activity, and diabetes education. PLAN FOR DISCHARGE: * Continue basal insulin with Lantus but convert to once daily dosing. * Pt is currently receiving Lantus 15 units SQ BID --> Will hold dose this AM and give full 24hr dose today @ 1200. Will slightly reduce to Lantus 25 units SQ daily. Pt can continue Lantus 25units SQ daily in AM on 11/07/16 * Simplify NovoLog to 10 units SQ daily with the largest meal of the day. * Pt to check BSG first thing in the morning while fasting prior to giving Lantus and prior to largest meal of the day when NovoLog is given. * Administer 1/2 of insulin dose if BSG is less than 90mg/dl Prescriptions Needed * Lantus Pen * NovoLog Pen * Insulin Pen [place] * Strips and Lancets Strips/Lancets Brand Name * Freestyle Lite
[2016-11-06] MEDS ORDERED: LISINOPRIL 2.5 MG TAB PO SCH (08:00)
[2016-11-06] MEDS: INSULIN ASPART 100 UNITS/ML 3 ML PEN SC SCH ×2 (08:16→12:33)
[2016-11-06] MEDS ORDERED: INSULIN GLARGINE SOLOSTAR 100 UNITS/ML 3 ML PEN SC SCH ×2 (09:00→12:00)
--- NOTE | 2016-11-06 14:10 | Discharge Instructions ---
Discharge Instructions Date of Service Nov 06, 2016. Admission Reason for Admission: Hyperglycemia Discharge Discharge Diagnosis / Problem: POORLY CONTROLLED DIABETES /PERIPHERAL VASCUALR DISEASE Discharge Goals Goal(s): Increase independence, Improve disease control, Diagnostic testing, Therapeutic intervention Activity Recommendations Activity Limitations: resume your previous activity . Instructions / Follow-Up Instructions / Follow-Up HOSPITAL FOLLOW UP ON 11/09/2016 @ 1:[address] Nikko Orlando, DO Internal Medicine [facility] FOLLOW UP WITH VASCULAR SURGERY DR PERALES IN 2-3 WEEKS, PLEASE REQUEST REFERRAL FORM DR ORLANDO FOR VASCULAR FOLLOW UP APPOINTMENT NEW MEDICATIONS : NORVASC 2.5 MG DAILY /LISINOPRIL 2.5 MG DAILY -FOR BLOOD PRESSURE LIPITOR 40 MG DAILY -FOR HIGH CHOLESTEROL YOUR CHOLESTEROL LEVEL NEEDS TO BE CHECKED IN NEXT 6 MONTHS INSULIN PEN: LANTUS 25 U SUBCUTANEOUSLY ( UNDER THE SKIN ) IN THE MORNING PLEASE CHECK BLOOD SUGAR FIRST THING IN THE MORNING ( BEFORE BREAKFAST ) PRIOR TO GIVING LANTUS ADMINISTER 1/2 DOSE OF INSULIN IF BLOOD SUGAR LESS THAN 90 MG/DL INSULIN NovoLog ( SHORT ACTING ) 10 U SUBCUTANEOUSLY ( UNDER THE SKIN ) BEFORE THE BIGGEST MEAL OF THE DAY PLEASE CHECK BLOOD SUGAR PRIOR TO GIVING INSULIN ADMINISTER 1/2 DOSE OF INSULIN IF BLOOD SUGAR LESS THAN 90 MG/DL BLOOD SUGAR CHECKS : FASTING ( BEFORE BREAKFAST ) BEFORE EACH MEAL AND BEFORE BED TIME PLEASE KEEP LOG OF THE BLOOD SUGAR READING AND BRING TO YOUR PHYSICIAN OFFICE IN EACH APPOINTMENT YOU WILL NEED YEARLY EYE EXAM DIABETIC FOOT EXAM WITH EACH CLINIC VISIT Current Hospital Diet Patient's current hospital diet: Diabetes Type 2 Diet Discharge Diet Recommended Diet: Diabetes Type 2 Diet Pending Studies Studies pending at discharge: yes List of pending studies: BASIC METABOLIC PANEL IN 1 WEEK HB A1C IN 3 MONTHS FASTING LIPID PROFILE IN 6 MONTHS Laboratory Results Hemoglobin A1c Test 11/04/16 12:05 Range/Units Estimated Average Glucose 283 mg/dl Hemoglobin A1c 11.5 H 4.5-5.6 % Lipid Panel Test 11/05/16 06:24 Range/Units Triglycerides Level 198 H 0-150 mg/dl Cholesterol Level 210 H 0-200 mg/dl HDL Cholesterol 47 mg/dl Cholesterol/HDL Ratio 4.5 LDL Cholesterol, Calculated 123 mg/dl Medical Emergencies . Who to Call and When: Medical Emergencies: If at any time you feel your situation is an emergency, please call 911 immediately. . Non-Emergent Contact Non-Emergency issues call your: Primary Care Provider . . "Provider Documentation" section prepared by Nayla Finch. VTE Core Measure Inpt VTE Proph given/why not?: Unfractionated heparin SQ
[2016-11-06] MEDS ORDERED: NRV5 PO (14:16)
[2016-11-06] MEDS ORDERED: NVLGI/PEN SC (14:16)
[2016-11-06] MEDS ORDERED: LSN25 PO (14:16)
[2016-11-06] MEDS ORDERED: INSDGIPEN SC (14:16)
[2016-11-06] MEDS ORDERED: CIPR250T5 PO (14:44)
[2016-11-06 14:46] VITALS: BP 170/90; PULSE 69; TEMP 36.7; O2SAT 96
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
== END 2016-11-06 15:06 | disposition home health service (06) | DRG 299 ==
LOC: ENRESERVTM → ENRESERVDT → C.EDB 11:32 → C.MS4W 16:08
PROVIDERS: ADMIT Hospitalist; ATTEND Hospitalist
DX: E11.51 Type 2 diabetes mellitus with diabetic peripheral angiopathy without gangrene (principal); G93.41 Metabolic encephalopathy; N17.9 Acute kidney failure, unspecified; E11.65 Type 2 diabetes mellitus with hyperglycemia; E11.628 Type 2 diabetes mellitus with other skin complications; L03.032 Cellulitis of left toe; R06.00 Dyspnea, unspecified; E86.0 Dehydration; I10 Essential (primary) hypertension; E78.00 Pure hypercholesterolemia, unspecified; E78.5 Hyperlipidemia, unspecified; R53.81 Other malaise; F03.90 Unspecified dementia, unspecified severity, without behavioral disturbance, psychotic disturbance, mood disturbance, and anxiety; Z91.14 Patient's other noncompliance with medication regimen; Z87.891 Personal history of nicotine dependence; Z79.82 Long term (current) use of aspirin

== ENCOUNTER 2017-01-04 05:15 | Day surgery (SDC) | payer OTHER ==
[~2017-01-04] VITALS: Ht 180.3 cm; Wt 89.0 kg
[2017-01-04] VITALS (12 sets, daily range): BP systolic 111–157; BP diastolic 60–82; PULSE 59–80; TEMP 36.5–36.7; O2SAT 95–98; Ht 180.3 cm; Wt 89.0 kg
[~2017-01-04 05:15] MED LIST: ASPI-435 PO; CIPR250T5 PO; INSDGIPEN SC; LSN25 PO; MULTTAB58 PO; NRV5 PO; NVLGI/PEN SC; OMEG10007 PO; THIA50TA3 PO
[2017-01-04] MEDS ORDERED: CEFAZOLIN 1000MG/55 ML D5W IV SCH (06:00)
[2017-01-04] MEDS ORDERED: CEFAZOLIN 2000 MG/60 ML D5W 60 ML IV SCH (06:00)
[2017-01-04] MEDS ORDERED: SODIUM CHLORIDE 0.9% 1000ML IV SCH (06:00)
--- NOTE | 2017-01-04 06:05 | History and Physical ---
History & Physical Date of Service Jan 04, 2017. History & Physical CC: Left great toe wound and arterial disease HPI: Mr. Adela Ortega is a 71-year-old gentleman with history of type 2 diabetes, hyperlipidemia, hypertension, peripheral vascular disease who is being seen in consultation for evaluation of a nonhealing left great toe wound. The patient was recently admitted to [facility] on October, with a left great toe wound and infection. The patient said that this all started when he was wearing a new pair of boots that were 1 size too large for him. He was rubbing his foot along the bottom of the shoe and developed a wound. This became infected and he had some altered mental status. For this reason, his took him to the emergency department at [facility] for further evaluation. He was admitted and placed on IV antibiotics. He was seen during that hospitalization by Vascular Surgery after getting a left lower extremity arterial duplex which showed a left popliteal and posterior tibial occlusion, as well as some SFA disease. He has since been discharged and has been following at the wound care center. His wound is improved, but has not completely healed. The wound clinic felt that they had done all that they could and recommended that he follow up with Vascular Surgery for improvement in blood flow to help with wound healing. Presently, the patient denies pain in his toes. He denies any claudication or rest pain. He does say that he has some swelling in his left leg and foot. He is otherwise feeling well and denies chest pain, shortness of breath, nausea, vomiting, fevers, chills, night sweats, headache, dizziness, weakness, numbness. He denies symptoms of unilateral visual changes or amaurosis, unilateral upper extremity or lower extremity numbness or weakness. He denies symptoms of stroke or mini stroke. REVIEW OF SYSTEMS: A 12-point review of systems was completed with pertinent positives and negatives in above HPI. PAST MEDICAL HISTORY: Significant for type 2 diabetes, hyperlipidemia, hypertension, peripheral arterial disease, nonhealing left great toe wound, history of positive PPD test. PAST SURGICAL HISTORY: None. FAMILY HISTORY: Significant for coronary artery disease and stroke. SOCIAL HISTORY: Significant for tobacco use. The patient quit 20 years ago, but prior to that smoked years, approximately 1 pack per day. He drinks alcohol occasionally. ALLERGIES: No known drug allergies. MEDICATIONS: Amlodipine, aspirin, atorvastatin, Lantus, NovoLog, lisinopril, magnesium gluconate, multivitamin, fish oil, thiamine. PHYSICAL EXAMINATION: Vital signs: Heart rate 75. Left arm blood pressure 136/68, right arm blood pressure 132/68. General: Patient is awake, alert and pleasant, in no acute distress. HEENT: Normocephalic, atraumatic. Pupils equal, round, reactive to light and accommodation. Neck is supple, trachea is midline. Neck: The patient has a soft carotid bruit on the right side. Lungs clear to auscultation bilaterally. Heart: Regular rate and rhythm, no murmurs, rubs or gallops. Abdomen: Soft, nontender, nondistended, positive bowel sounds. No scars appreciated. Extremities: The patient has palpable femoral pulses bilaterally. The patient has biphasic right DP and PT signal. The left DP and PT are monophasic. The patient has a wound over the distal most aspect of his left great toe that is approximately 1 cm and fairly superficial. He has dependent rubor of the left foot. He has motor and sensation intact in bilateral lower extremities. Skin: No rash. LABORATORIES: The patient's most recent creatinine was 0.9. IMAGING: The patient underwent an arterial duplex of the left lower extremity that showed SFA disease, left popliteal occlusion, left PT occlusion, some stenosis of the AT and peroneal as well. ASSESSMENT: Left lower extremity arterial disease Left great toe wound Plan: Patient is admitted for arteriography and possible intervention. I have discussed the risks options and benefits of the procedure with the patient. The patient understands the risks options and benefits and agrees to the procedure.
[2017-01-04 06:44] LABS: CREATININE 1.1 mg/dl (0.60-1.40)
[2017-01-04] MEDS ORDERED: FENTANYL CITRATE INJ 50 MCG/1 ML 2 ML VIAL ONE (07:45)
[2017-01-04] MEDS ORDERED: MIDAZOLAM HCL 1 MG/ML 2ML VIAL ONE (07:45)
[2017-01-04] MEDS ORDERED: HEPARIN SOD (PORCINE) 1000 UNIT/ML 10 ML VIAL ONE (07:46)
--- NOTE | 2017-01-04 07:53 | History & Physical Bridge Note ---
H&P Re-Evaluation Bridge Note: I have examined the patient, reviewed the History & Physical and in the interval since the performance of the History & Physical I have noted the following changes of clinical significance: No changes noted
--- NOTE | 2017-01-04 07:53 | Procedure Note ---
Pre-Mod Sedation Assessment General Date of Moderate Sedation: Jan 04, 2017. Vital Signs: Vital Signs Past 12 Hours Date Time Temp Pulse Resp B/P (MAP) Pulse Ox O2 Delivery O2 Flow Rate FiO2 01/04/17 06:25 36.7 80 20 157/82 (107) 97 Room Air Pre-Sedation Airway Assessment Oral Cavity: Dentures Short Thick Neck: No Hx of Sleep Apnea: No Smoking Status: Former Smoker Mallampati Classification: Class I ASA Classification: Class III Notes The planned sedation has been discussed with the patient and consent obtained. I have identified the patient, determined the appropriateness of sedation and have assessed the patient immediately prior to the procedure. All medicine(s) and interventions are by my order.
[2017-01-04] MEDS ORDERED: MIDAZOLAM HCL 1 MG/ML 2ML VIAL IV ONE (08:29)
[2017-01-04] MEDS ORDERED: FENTANYL CITRATE INJ 50 MCG/1 ML 2 ML VIAL IV ONE (08:29)
[2017-01-04] MEDS ORDERED: OXYCODONE/ACETAMINOPHEN 5-325 TAB PO PRN (09:00)
[2017-01-04] MEDS ORDERED: LIDOCAINE HCL 1% 20 ML VIAL INFIL ONE (09:02)
[2017-01-04] MEDS ORDERED: IODIXANOL (VISIPAQUE) 270 MG/ML 150ML IV ONE (09:02)
--- NOTE | 2017-01-04 09:04 | [facility] Post Operative Brief Note ---
Immediate Operative Summary Operative Date Jan 04, 2017. Pre-Operative Diagnosis Left lower extremity arterial disease Left great toe wound Post-Operative Diagnosis Same Procedure(s) Performed Left Lower Extremity Angiogram Moderate conscious sedation (5340-2485) Surgeon Alfa Lna Surgeon(s) Nikki Gonzales Estimated Blood Loss 20 Findings Left popliteal artery occlusion, prox ant tib occl, post tib occl, recon of the ant tib lower third of leg Specimens None Anesthesia Local with conscious sedation Complication(s) None Disposition
--- NOTE | 2017-01-04 09:25 | Procedure Note ---
Post-Moderate Sedation Plan General Date of Moderate Sedation Jan 04, 2017. Vital Signs: Vital Signs Past 12 Hours Date Time Temp Pulse Resp B/P (MAP) Pulse Ox O2 Delivery O2 Flow Rate FiO2 01/04/17 07:56 36.7 80 20 157/82 97 Room Air 01/04/17 06:25 36.7 80 20 157/82 (107) 97 Room Air Review - Discharge Plan Post Moderate Sedation Plan: On clinical assessment, the patient appears to have tolerated the conscious sedation without complications. Patient is recovering as anticipated. Patient will continue to be monitored by nursing and may be discharged when conscious sedation discharge criteria are met.
--- NOTE | 2017-01-04 09:26 | Discharge Instructions ---
Discharge Instructions Date of Service Jan 04, 2017. Visit Reason for Visit: Left Popliteal Occlusion Discharge Discharge Diagnosis / Problem: Left popliteal artery occlusion and infrapopltieal artery occlusion Discharge Goals Goal(s): Diagnostic testing Activity Recommendations Activity Limitations: per Instructions/Follow-up section Anesthesia . Post Anesthesia Instructions: If you have had General Anesthesia or IV Sedation: * Do not drive today. * Resume driving when surgeon permits. * Do not make important decisions or sign legal documents today. * Call surgeon for: 1. Temperature elevations greater than 101 degrees F. 2. Uncontrollable pain. 3. Excessive bleeding. 4. Persistent nausea and vomiting. 5. Medication intolerance (nausea, vomiting or rash). * For nausea and vomiting use only clear liquids such as: tea, soda, bouillon until nausea subsides, then gradually increase diet as tolerated. * If you have any concerns or questions, call your surgeon's office. If physician is unavailable and it is an emergency, call 911 or go to the nearest emergency room. . Instructions / Follow-Up Instructions / Follow-Up Call [phone] to schedule a follow up appointment if one not already scheduled. SPECIAL CARE INSTRUCTIONS: Medications: * Continue to take your medications as directed. If you have been given a prescription for Plavix, please fill it immediately and take as directed. Incision Care: * Your puncture site may have some bruising and minor swelling for about one week. * You will have a small dressing covering your puncture site. You may remove the dressing after 24 hours and shower. You may let the warm soapy water run over it, but be sure to dry the puncture site well and keep it dry. * DO NOT IMMERSE THE INCISION IN A TUB/POOL/etc. UNTIL HEALED. * Puncture sites should be kept covered with a band-aid until it begins to heal. Restrictions: * Depending on whether you leg or arm was punctured to access the arteries, you will be required to lay flat, hold your arm still, or both, for about 4 hours after the procedure to prevent bleeding. * Limit your activity for the first 48 hours. You may walk and go up and down steps. Avoid excessive bending or movement at the puncture site. Possible Complications: * Excessive Swelling - after blood flow is improved you may notice increased swelling in the lower legs. This is a normal response. This usually depends on the amount of blockages in the leg, how long they have been there prior to your procedure and how much blood flow was restored. Elevating your legs will help to improve this. Please notify our office ([phone] ) if the swelling does not go away after lying in bed overnight. * Infection/Drainage/Bleeding - Drainage or bleeding from the puncture site should be minimal. If you have excessive bleeding or drainage, call our office ([phone]) right away. * Pain - You may experience some mild pain or soreness at your puncture site. If your pain does not improve, please contact our office ([phone]). Call your doctor and seek emergent treatment if you develop: * Temperature above 101 degrees * Any fever or chills * Any redness or purulent drainage from the puncture site * Any new dusky/blue colored toes or feet with coolness or sharp or aching pain. SKIN IRRITATION: * You may experience some redness and/or swelling in the area where radiation was administered. If any skin irritation occurs, please contact your family physician. FOLLOW UP VISIT: Keep any scheduled doctor appointments. Diet Recommendations Recommended Home Diet: resume previous diet Procedures Procedures Performed: Left Lower Extremity Angiogram Moderate conscious sedation ([id number]) Pending Studies Studies pending at discharge: no Medical Emergencies . Who to Call and When: Medical Emergencies: If at any time you feel your situation is an emergency, please call 911 immediately. . Non-Emergent Contact Non-Emergency issues call your: Surgeon . . "Provider Documentation" section prepared by Ted Grimm. .
--- NOTE | 2017-01-04 11:08 | DIAGNOSTIC IMAGING REPORT ---
DATE OF PROCEDURE: 01/04/2017 ATTENDING OF RECORD: Dr. Ted Grimm. PREOPERATIVE DIAGNOSIS: Nonhealing left great toe Wound. POSTOPERATIVE DIAGNOSIS: Nonhealing left great toe wound. PROCEDURE: Conscious sedation -- 54 minutes, left lower extremity diagnostic angiogram. SURGEON: Dr. Ted Grimm. CAREER DEVELOPMENT FACILITATOR: Dr. Nikki Gonzales. ANESTHESIA: Moderate sedation plus local. ESTIMATED BLOOD LOSS: 20 mL COMPLICATIONS: None. CONDITION: Stable. INDICATIONS: Mr. Vela is a 71-year-old gentleman with history of a nonhealing left lower extremity, a left great toe wound. He additionally has peripheral vascular disease. For this reason, he was recommended to undergo angiogram of the left lower extremity with possible intervention. Risks, benefits and alternatives were discussed with the patient and he consented to the procedure. DESCRIPTION OF PROCEDURE: The patient was taken to the [facility] and placed in a supine position. His bilateral groins were prepped and draped in the usual sterile fashion. A safety timeout was performed with the patient, procedure, and side were correctly identified. The patient was administered conscious sedation for a total of 54 minutes. Right femoral pulse was palpable. Local anesthesia was used to anesthetize the skin overlying the right common femoral artery. This was accessed with an 18-gauge needle. A guidewire easily passed through the needle and a 5-Argentine sheath was placed in the right groin. A 0.035 Glidewire was placed into the abdominal aorta followed by a rim catheter. This was used to get up and over the bifurcation. The catheter was placed in the distal left external iliac artery. A left lower extremity diagnostic angiogram was obtained. It showed an above-knee popliteal occlusion. Reconstitution of the peroneal and ET were seen in the lower leg. The below-knee popliteal was occluded as well. Given that there was not a suitable below-knee popliteal target, we did not feel that it was appropriate to attempt to cross the lesion. The rim catheter was removed. Two Perclose devices were attempted to be deployed in the right common femoral artery, but we were unsuccessful. Manual pressure was held for 20 minutes with good hemostasis. The patient tolerated the procedure well and there were no immediate complications. The patient had a Dopplerable AT and PT on the right and AT and PT on the left at the close of the case. Dr. Ted Grimm was present for the entire procedure. I, Dr. Grimm was present and scrubed for the entire procedure. GORDOD
== END 2017-01-04 14:18 | disposition home or self-care (01) ==
LOC: C.ACU 05:15
PROVIDERS: ATTEND Surgery Vascular Surgery
DX: S91.102A Unspecified open wound of left great toe without damage to nail, initial encounter (principal); X58.XXXA Exposure to other specified factors, initial encounter; I73.9 Peripheral vascular disease, unspecified; E11.9 Type 2 diabetes mellitus without complications; E78.5 Hyperlipidemia, unspecified; I10 Essential (primary) hypertension; Z82.49 Family history of ischemic heart disease and other diseases of the circulatory system; Z82.3 Family history of stroke; Z87.891 Personal history of nicotine dependence; Z79.4 Long term (current) use of insulin; Z79.82 Long term (current) use of aspirin

== ENCOUNTER 2023-10-11 14:21 | Observation (INO) ==
--- NOTE | 2023-10-11 15:00 | Emergency Department Note ---
Impression & Plan Acute hypotension, FLORENTINO (acute kidney injury), Fecal impaction, Pleural effusion on left ED Provider Note NAME: RADHA NIELSON AGE: 78 SEX: M : 1945 ARRIVES VIA: Walk-In INFORMANT: Patient, ED PROVIDER(S): Wayne Davis DO CHIEF COMPLAINT: Constipation HPI: The patient is a 78-year-old male who presented to the emergency department for an evaluation of constipation. He is try some ykqj-myw-qiicujd laxatives without relief. He denies having any abdominal pain or fever. He denies having any chest pain or difficulty breathing. The patient has not seen his family doctor for the symptoms. He has been compliant with his outpatient medication regimen otherwise. ROS: See above HPI for pertinent positives & negatives. A total of 10 systems reviewed and were otherwise negative. PAST MEDICAL HISTORY: See Below PAST SURGICAL HISTORY: See Below FAMILY HISTORY: See Below SOCIAL HISTORY: See Below HOME MEDICATIONS: See Below ALLERGIES: See Below VITALS: See Below PHYSICAL EXAMINATION: GENERAL: Patient is awake alert in no acute distress patient is resting comfortably and showing no signs of anxiety EYES: The conjunctivae are clear. The pupils are round and reactive. EARS, NOSE, MOUTH AND THROAT: The nose is without any evidence of any deformity. Mucous membranes are moist. Tongue is midline. NECK: The neck is nontender and supple. RESPIRATORY: Normal respiratory effort is noted there is no evidence of wheezing rhonchi or rales CARDIOVASCULAR: Regular rate and rhythm noted there no murmurs rubs or gallops normal S1 normal S2. GASTROINTESTINAL: The abdomen is soft. Abdomen is nontender. Rectal exam revealed significant stool in the vault. Stool was dark with heme negative findings. SKIN: There is no obvious evidence of any rash. There are no petechiae, pallor or cyanosis noted. NEUROLOGIC: Patient is awake alert and oriented x 3. MEDICAL DECISION MAKING: The patient is a 78-year-old male who presented to the emergency department for an evaluation of constipation. The patient initially did not have any abdominal pain on physical exam. He was initially hypotensive. I discussed the patient's laboratory and radiographic studies with him. He did have a significant amount of stool on digital rectal exam. He had an enema while in the emergency department and had a large bowel movement. He was feeling much better but continued to be hypotensive. For this reason I was concerned there could be some other process causing the patient's hypotension. He was found to have an elevated lactate. He was treated with IV fluids in the emergency department. He was not given a fluid bolus given his cardiac history. He was started on empiric antibiotics. I discussed the patient's laboratory and radiographic studies with him. Given his findings I [facility] They have agreed to evaluate the patient in the emergency department for further management and disposition. Triage Nursing notes reviewed. Prior medical records reviewed Vital Signs: reviewed and remarkable for hypotension. Differential diagnosis: Functional constipation, impaction, obstruction, volvulus, metabolic abnormality, infection, neurologic, as well as other pathologies. ER treatment provided: See below Diagnostics interpreted by me: ECG: EKG was obtained in the emergency department. My interpretation is normal sinus rhythm at 65 bpm. Right bundle branch block pattern was noted. Nonspecific ST and T wave abnormalities were noted. LVH was suggested by voltage criteria. No previous tracing was available Cardiac Monitoring: An order was placed for continuous cardiac monitoring. The monitor shows a rate of 60 bpm with sinus rhythm Laboratory studies: As stated above and show below. Imaging studies: See below. Radiographic imaging was reviewed by myself Consultation(s): [facility]ist, Dr. Rivera was notified about the patient. ED COURSE: Procedures: none Critical Care: I have personally spent greater than 45 minutes of critical care time in the direct management of this patient. This includes bedside care, interpretation of diagnostic studies, and testing, discussion with consultants, patient, and family members, and other required patient management activities. This 45 minutes is in excess of all separately billable procedures. Past Med/Surg History Medical History Coronary artery disease involving coronary bypass graft Pneumothorax Pleural effusion Ex-smoker Dyslipidemia HTN (hypertension) DM type 2 (diabetes mellitus, type 2) Hyperglycemia Social History Smoking Status: Never smoker Tobacco Type: Cigarettes Age Started Using Tobacco: 19; Age Quit Using Tobacco: 48; Hx Alcohol Use: Yes Alcohol type: beer Hx Substance Use: No Preferred Language: Jamaican Communication Ability: Effective Olive Grader Required: No Current Living Situation: Spouse Feels Safe at Home: Yes Allergies Allergies Allergy/AdvReac Type Severity Reaction Status Date / Time vancomycin Allergy Severe Verified 07/23/23 14:10 Home Meds Home Medications Medication Instructions Recorded Confirmed ASPIRIN (ASPIRIN 81) 81 mg PO DAILY ##0 11/04/16 07/23/23 Fish Oil (Worton-3) 1 cap PO DAILY #0 caps 11/04/16 07/23/23 MULTIPLE VITAMIN (MULTIVITAMIN) 1 tab PO DAILY #0 tabs 11/04/16 07/23/23 Thiamine Hcl (Vitamin B-1) 50 mg PO DAILY #0 tabs 11/04/16 07/23/23 magnesium 200 mg tablet 200 mg PO DAILY 07/23/23 07/23/23 atorvastatin 40 mg tablet 40 mg PO DAILY 07/26/23 07/26/23 empagliflozin 10 mg tablet 10 mg PO QDAY 07/26/23 07/26/23 sertraline 100 mg tablet 100 mg PO DAILY 07/26/23 07/26/23 Previous Rx's Medication Instructions Recorded Amlodipine Besylate 2.5 mg PO QAM 30 days #30 tabs 11/06/16 Insulin Aspart (NOVOLOG FLEXPEN) 10 unit SC DAILY 30 days #1 pen 11/06/16 Insulin Glargine (Lantus Solostar) 25 unit SC DAILY 30 days #1 pen 11/06/16 Lisinopril 2.5 mg PO QAM 30 days #30 tabs 11/06/16 Results & Data (ED) Vital Signs Vital Signs - 24 hr 10/11/23 14:28 10/11/23 16:04 10/11/23 16:11 Temperature 36.3 C L Temperature Source Temporal Artery Scan Pulse Rate 75 61 Pulse Rate [Right Finger] 62 Pulse Rate from SpO2 Sensor 52 L Respiratory Rate 20 20 19 Respiratory Effort / Characteristics Non-Labored Spontaneous Non-Labored Respiratory Depth Normal Normal Blood Pressure 99/61 L Blood Pressure [Right Arm] 79/37 L Blood Pressure Mean 73 Blood Pressure Mean [Right Arm] 51 Pulse Oximetry 93 94 92 Oxygen Delivery Method Room Air Sepsis New/Unexplained Change in Mental Status No Sepsis Action Taken by Nursing No Action Required 10/11/23 16:11 10/11/23 16:15 10/11/23 16:16 Temperature Temperature Source Pulse Rate 63 60 Pulse Rate [Right Finger] Pulse Rate from SpO2 Sensor 63 Respiratory Rate 18 Respiratory Effort / Characteristics Respiratory Depth Blood Pressure 74/41 L Blood Pressure [Right Arm] Blood Pressure Mean 50 Blood Pressure Mean [Right Arm] Pulse Oximetry 92 Oxygen Delivery Method Sepsis New/Unexplained Change in Mental Status Sepsis Action Taken by Nursing 10/11/23 16:20 10/11/23 16:24 10/11/23 16:24 Temperature Temperature Source Pulse Rate 58 L Pulse Rate [Right Finger] 66 Pulse Rate from SpO2 Sensor Respiratory Rate 22 Respiratory Effort / Characteristics Non-Labored Respiratory Depth Normal Blood Pressure 83/43 L Blood Pressure [Right Arm] 83/43 L Blood Pressure Mean 56 Blood Pressure Mean [Right Arm] 56 Pulse Oximetry 92 94 Oxygen Delivery Method Room Air Room Air Sepsis New/Unexplained Change in Mental Status Sepsis Action Taken by Nursing 10/11/23 16:24 10/11/23 16:30 10/11/23 16:32 Temperature Temperature Source Pulse Rate 66 65 Pulse Rate [Right Finger] Pulse Rate from SpO2 Sensor 66 62 Respiratory Rate 22 18 Respiratory Effort / Characteristics Respiratory Depth Blood Pressure 96/53 L Blood Pressure [Right Arm] Blood Pressure Mean 62 Blood Pressure Mean [Right Arm] Pulse Oximetry 94 93 Oxygen Delivery Method Sepsis New/Unexplained Change in Mental Status Sepsis Action Taken by Nursing 10/11/23 16:32 10/11/23 17:30 Temperature Temperature Source Pulse Rate 64 Pulse Rate [Right Finger] 59 L Pulse Rate from SpO2 Sensor 62 Respiratory Rate 20 16 Respiratory Effort / Characteristics Non-Labored Respiratory Depth Normal Blood Pressure Blood Pressure [Right Arm] 104/59 L Blood Pressure Mean Blood Pressure Mean [Right Arm] 74 Pulse Oximetry 94 94 Oxygen Delivery Method Room Air Sepsis New/Unexplained Change in Mental Status Sepsis Action Taken by [facility] Medications Current Medication List: was personally reviewed by me Laboratory Data Attestation: I reviewed the patient's lab results. 10/11/23 16:22 10/11/23 16:22 Lab Results 10/11/23 10/11/23 10/11/23 Range/Units 16:22 16:40 16:49 WBC 8.94 (4.8-10.8) K/ul RBC 4.29 L (4.70-6.10) M/uL Hgb 12.3 L (14.0-18.0) g/dl POC Hgb 12.6 L (14.0-18.0) g/dl Hct 38.5 L (42.0-52.0) % POC Hct 37 L (42-52) % MCV 89.7 (80.0-100.0) fL MCH 28.7 (25.0-34.0) pg MCHC 31.9 L (32.0-36.0) g/dL RDW Std Deviation 45.6 (36.4-46.3) fL RDW Coeff of Maik 14.1 (11.5-14.5) % Plt Count 297 (130-400) K/uL MPV 9.7 (9.4-12.4) fL Immature Gran % (Auto) 1.0 % Neut % (Auto) 70.5 % Lymph % (Auto) 15.4 % [place] % (Auto) 11.0 % Eos % (Auto) 1.8 % Baso % (Auto) 0.3 % Neut # (Auto) 6.30 (1.40-6.50) K/uL Lymph # (Auto) 1.38 (1.20-3.40) K/uL [place] # (Auto) 0.98 H (0.11-0.59) K/uL Eos # (Auto) 0.16 (0.00-0.50) K/uL Baso # (Auto) 0.03 (0.00-0.20) K/uL Immature Gran # (Auto) 0.09 (0.01-0.20) K/uL PT 11.5 (9.0-12.0) Seconds INR 1.1 (0.9-1.1) APTT 34 H (21-31) Seconds PTT Ratio 1.2 VBG pH 7.37 (7.36-7.41) VBG pCO2 56 H (38-50) mmHg VBG pO2 23 mmHg VBG HCO3 32 mmol/L VBG O2 Saturation < 60.0 % VBG Base Excess 5.5 mEq/L POC Sodium 140 (135-144) mmol/L Sodium 140 (136-145) mmol/L POC Potassium 4.7 (3.3-5.0) mmol/L Potassium 3.6 (3.5-5.1) mmol/L POC Chloride 100 L (101-112) mmol/L Chloride 99 (98-107) mmol/L Carbon Dioxide 28 (21-32) mmol/L POC Total CO2 29 (24-31) mmol/L Anion Gap 13 H (3-11) POC Anion Gap 16.0 (16-25) mmol/L POC BUN 42 H (7-18) mg/dl BUN 48 H (6-23) mg/dl Creatinine 2.11 H (0.6-1.4) mg/dl POC Creatinine 2.5 H (0.6-1.3) mg/dl Est Cr Clr Drug Dosing 27.0 ml/min Est GFR ( Amer) 33.7 ml/min Est GFR (Non-Af Amer) 29.1 ml/min BUN/Creatinine Ratio 22.7 H (10-20) Glucose 173 H (70-99(Fasting)) mg/dl POC Glucose (other) 190 H (70-99) mg/dl Lactate 3.6 H* (0.4-2.0) mmol/L Calcium 9.3 (8.6-10.3) mg/dl POC Ioniz Calcium Larry 1.04 L (1.12-1.32) mmol/l Magnesium 2.4 (1.7-2.4) mg/dl Total Bilirubin 0.6 (0.2-1.0) mg/dl Direct Bilirubin 0.1 (0-0.2) mg/dl AST 20 (13-39) U/L ALT 11 (7-52) U/L Alkaline Phosphatase 63 (34-104) U/L Troponin I High Sens 16.1 (0-20) pg/ml Total Protein 7.6 (6.0-8.3) gm/dl Albumin 3.7 (3.4-5.0) gm/dl Procalcitonin 0.19 (0-0.5) ng/ml 10/11/23 Range/Units 18:58 WBC (4.8-10.8) K/ul RBC (4.70-6.10) M/uL Hgb (14.0-18.0) g/dl POC Hgb (14.0-18.0) g/dl Hct (42.0-52.0) % POC Hct (42-52) % MCV (80.0-100.0) fL MCH (25.0-34.0) pg MCHC (32.0-36.0) g/dL RDW Std Deviation (36.4-46.3) fL RDW Coeff of Maik (11.5-14.5) % Plt Count (130-400) K/uL MPV (9.4-12.4) fL Immature Gran % (Auto) % Neut % (Auto) % Lymph % (Auto) % [place] % (Auto) % Eos % (Auto) % Baso % (Auto) % Neut # (Auto) (1.40-6.50) K/uL Lymph # (Auto) (1.20-3.40) K/uL [place] # (Auto) (0.11-0.59) K/uL Eos # (Auto) (0.00-0.50) K/uL Baso # (Auto) (0.00-0.20) K/uL Immature Gran # (Auto) (0.01-0.20) K/uL PT (9.0-12.0) Seconds INR (0.9-1.1) APTT (21-31) Seconds PTT Ratio VBG pH (7.36-7.41) VBG pCO2 (38-50) mmHg VBG pO2 mmHg VBG HCO3 mmol/L VBG O2 Saturation % VBG Base Excess mEq/L POC Sodium (135-144) mmol/L Sodium (136-145) mmol/L POC Potassium (3.3-5.0) mmol/L Potassium (3.5-5.1) mmol/L POC Chloride (101-112) mmol/L Chloride (98-107) mmol/L Carbon Dioxide (21-32) mmol/L POC Total CO2 (24-31) mmol/L Anion Gap (3-11) POC Anion Gap (16-25) mmol/L POC BUN (7-18) mg/dl BUN (6-23) mg/dl Creatinine (0.6-1.4) mg/dl POC Creatinine (0.6-1.3) mg/dl Est Cr Clr Drug Dosing ml/min Est GFR ( Amer) ml/min Est GFR (Non-Af Amer) ml/min BUN/Creatinine Ratio (10-20) Glucose (70-99(Fasting)) mg/dl POC Glucose (other) (70-99) mg/dl Lactate 1.0 (0.4-2.0) mmol/L Calcium (8.6-10.3) mg/dl POC Ioniz Calcium Larry (1.12-1.32) mmol/l Magnesium (1.7-2.4) mg/dl Total Bilirubin (0.2-1.0) mg/dl Direct Bilirubin (0-0.2) mg/dl AST (13-39) U/L ALT (7-52) U/L Alkaline Phosphatase (34-104) U/L Troponin I High Sens (0-20) pg/ml Total Protein (6.0-8.3) gm/dl Albumin (3.4-5.0) gm/dl Procalcitonin (0-0.5) ng/ml Administered Medications Discontinued Medications Sodium Chloride (Nss) 1,000 mls @ 999 mls/hr IV .Q1H1M ONE Stop: 10/11/23 17:29 Last Infusion: 10/11/23 17:36 Dose: Infused Documented By: Admin: 10/11/23 16:35 Dose: 999 mls/hr Documented By: MURALI Sodium Chloride (Nss) 1,000 mls @ 999 mls/hr IV .Q1H1M ONE Stop: 10/11/23 18:11 Last Infusion: 10/11/23 19:03 Dose: Infused Documented By: Admin: 10/11/23 17:46 Dose: 999 mls/hr Documented By: KIMBERLY Cefepime HCl (Maxipime) 2,000 mg in 20 mls @ 5 mls/min IV NOW STA; Protocol Stop: 10/11/23 17:39 Last Admin: 10/11/23 17:46 Dose: 5 mls/min Documented By: KIMBERLY Imaging Data Attestation: I personally reviewed and interpreted this imaging study as follows: My Impression: 1 view chest x-ray was obtained in the emergency department. My interpretation is left-sided pleural effusion, final report below. CT of the abdomen and pelvis was obtained in the emergency department. My interpretation is no free air or signs of bowel obstruction, final report pending. Radiologist's Impression: Chest X-Ray 10/11/23 16:12 SINGLE VIEW CHEST CLINICAL HISTORY: Sepsis. FINDINGS: An AP, portable, upright chest radiograph is compared to study dated 08/16/2023. Correlation is made with chest CT dated 05/07/2023. The patient is status post midline sternotomy and cardiac valve surgery. The heart is mildly enlarged noting atherosclerotic calcification of the thoracic aorta. The pulmonary vasculature is noncongested. Chronic interstitial thickening is similar to previous. There is a moderate left pleural effusion with left basilar consolidation. The right lung appears clear. No pneumothorax is seen. The skeletal structures are osteopenic. The bony thorax is grossly intact. IMPRESSION: 1. Cardiomegaly without radiographic evidence of congestive failure. 2. Moderate left pleural effusion with dependent consolidation. ACT 112: Negative or not required by law. Electronically signed by: Oscar Bishop M.D. 10/11/2023 5:15 PM Abdomen/Pelvis CT 10/11/23 16:50 CT SCAN OF THE ABDOMEN AND PELVIS WITHOUT IV CONTRAST CLINICAL HISTORY: Generalized abdominal pain. Constipation. COMPARISON STUDY: No priors. TECHNIQUE: CT scan of the abdomen and pelvis is performed from the lung bases to the proximal femora. Images are reviewed in the axial, sagittal, and coronal planes. IV contrast was not administered for this examination. Note that the examination was performed in significantly suboptimal fashion without oral and IV contrast. A dose lowering technique was utilized adhering to the principles of ALARA. CT DOSE: 1084.86 mGy.cm FINDINGS: Lung bases: The heart is large and without pericardial effusion. The coronary arteries and mitral annulus are densely calcified. The patient is status post midline sternotomy and aortic valve surgery. There is a chronic-appearing thick walled pleural collection at the left lung base chest CT dated 05/07/2023, which has decreased in size from the 05/07/[address] There is scarring/atelectasis at the left lung base. No airspace consolidation is seen typical for pneumonia. A small hiatal hernia is noted. Liver: The unenhanced liver is normal in size, contour, and attenuation. There is no intrahepatic biliary ductal dilatation. Gallbladder: Unremarkable. Spleen: Normal in size and attenuation. There are calcified splenic granulomas. Pancreas: Unremarkable. Adrenal glands: Unremarkable. Kidneys: The unenhanced kidneys demonstrate mild cortical atrophy and are without hydronephrosis. There are renal vascular calcifications. No renal calculi are identified and there is no ureteral stone. A 1.4 cm cyst is noted on the left. Abdominal vasculature: There is advanced atherosclerotic calcification of the abdominal aorta which is normal in caliber. Bowel: The rectal wall appears circumferentially thickened with mild surrounding infiltration. There is mild to moderate colonic diverticulosis without CT evidence of acute diverticulitis. No bowel obstruction is seen. The appendix is well-visualized and normal. Peritoneum: There is no intraperitoneal free air or abdominal ascites. There is a fat-containing umbilical hernia. Lymphadenopathy: None. Pelvic viscera: The prostate gland is enlarged and heterogeneous. The bladder wall is thickened/trabeculated indicating chronic outlet obstruction. There are bilateral fat-containing groin hernias. Skeletal structures: The skeletal structures are osteopenic. Moderate lumbosacral spondylosis is observed. Degenerative sclerosis is noted in the sacroiliac joints. No lytic or blastic lesions are seen. IMPRESSION: 1. The rectal wall appears thickened and there is perirectal infiltration. Correlate clinically for evidence of a nonspecific proctitis. If warranted this could be further assessed with direct visualization. 2. Cardiomegaly and a chronic appearing left pleural fluid collection are seen in the lower chest. 3. Colonic diverticulosis without CT evidence of acute diverticulitis. 4. Additional findings as above. ACT 112: Negative or not required by law. Electronically signed by: Oscar Bishop M.D. 10/11/2023 7:17 PM Discharge Plan Visit Data Chief Complaint: GI Assessment Stated Complaint: GI ASSESS ED Provider: Wayne Davis Discharge Problem: Acute hypotension, FLORENTINO (acute kidney injury), Fecal impaction, Pleural effusion on left Patient Disposition: Being Evaluated by Hospitalist Forms Stand Alone Forms: My [facility] Prescriptions Prescriptions: No Action Fish Oil (Worton-3) 1 EA capsule 1 cap PO DAILY Qty: 0 MULTIPLE VITAMIN (MULTIVITAMIN) 1 TAB tablet 1 tab PO DAILY Qty: 0 Thiamine Hcl (Vitamin B-1) 50 MG tablet 50 mg PO DAILY Qty: 0 ASPIRIN (ASPIRIN 81) 81 MG tablet 81 mg PO DAILY Qty: 0 Amlodipine Besylate 5 MG tablet 2.5 mg PO QAM 30 Days Qty: 30 2RF Insulin Aspart (NOVOLOG FLEXPEN) 100 UNITS/ML INJECTION 10 unit SC DAILY 30 Days Qty: 1 0RF Rx Instructions: NOVOLOG 10 U SQ WITH THE LARGEST MEAL OF THE DAY Insulin Glargine (Lantus Solostar) 100 UNIT/ML INJECTION 25 unit SC DAILY 30 Days Qty: 1 3RF Lisinopril 2.5 MG tablet 2.5 mg PO QAM 30 Days Qty: 30 2RF magnesium 200 mg tablet 200 mg PO DAILY atorvastatin 40 mg tablet 40 mg PO DAILY empagliflozin 10 mg tablet 10 mg PO QDAY sertraline 100 mg tablet 100 mg PO DAILY Referrals Referrals: Henrry Gonzalez MD [Primary Care Provider] -
[2023-10-11] MEDS: SODIUM CHLORIDE 0.9% 1,000 ML IV ONE ×2 (16:35→17:46)
[2023-10-11 16:55] LABS: Base Excess VBG 5.5 mEq/L; HCO3 VBG 32 mmol/L; Oxygen Saturation VBG < 60.0 %; PCO2 VBG 56 mmHg (38-50); PO2 VBG 23 mmHg; pH VBG 7.37 (7.36-7.41)
[2023-10-11 16:59] LABS: Basophils # (auto) 0.03 K/uL (0.00-0.20); Basophils % (auto) 0.3 %; Eosinophils # (auto) 0.16 K/uL (0.00-0.50); Eosinophils % (auto) 1.8 %; Hematocrit (blood only) 38.5 % (42.0-52.0); Hemoglobin 12.3 g/dl (14.0-18.0); Immature Granulocytes # (auto) 0.09 K/uL (0.01-0.20); Lymphocytes # (auto) 1.38 K/uL (1.20-3.40); Lymphocytes % (auto) 15.4 %; Mean Corpuscular Hemoglobin 28.7 pg (25.0-34.0); Mean Corpuscular Hgb Conc 31.9 g/dL (32.0-36.0); Mean Corpuscular Volume 89.7 fL (80.0-100.0); Mean Platelet Volume 9.7 fL (9.4-12.4); Monocytes # (auto) 0.98 K/uL (0.11-0.59); Neutrophils % (auto) 70.5 %; Platelet Count 297 K/uL (130-400); RDW Coefficient of Variation 14.1 % (11.5-14.5); RDW Standard Deviation 45.6 fL (36.4-46.3); Red Blood Count 4.29 M/uL (4.70-6.10); White Blood Count 8.94 K/ul (4.8-10.8)
[2023-10-11 17:00] LABS: iSTAT Creatinine 2.5 mg/dl (0.6-1.3); iSTAT Hemoglobin 12.6 g/dl (14.0-18.0); iSTAT Ionized Calcium 1.04 mmol/l (1.12-1.32); iSTAT Potassium 4.7 mmol/L (3.3-5.0)
--- NOTE | 2023-10-11 17:17 | XRay Report ---
SINGLE VIEW CHEST CLINICAL HISTORY: Sepsis. FINDINGS: An AP, portable, upright chest radiograph is compared to study dated 08/16/2023. Correlation is made with chest CT dated 05/07/2023. The patient is status post midline sternotomy and cardiac va lve surgery. The heart is mildly enlarged noting atherosclerotic calcification of the thoracic aorta. The pulmonary vasculature is noncongested. Chronic interstitial thickening is similar to previous. T here is a moderate left pleural effusion with left basilar consolidation. The right lung appears nadiya r. No pneumothorax is seen. The skeletal structures are osteopenic. The bony thorax is grossly intact . IMPRESSION: 1. Cardiomegaly without radiographic evidence of congestive failure. 2. Moderate left pleural effusion with dependent consolidation. ACT 112: Negative or not required by law. Electronically signed by: Oscar Bishop M.D. 10/11/2023 5:15 PM
[2023-10-11 17:18] LABS: Albumin Level 3.7 gm/dl (3.4-5.0); BUN Creatinine Ratio 22.7 (10-20); Bilirubin Direct 0.1 mg/dl (0-0.2); Bilirubin,Total 0.6 mg/dl (0.2-1.0); Calcium 9.3 mg/dl (8.6-10.3); Est GFR (African American) 33.7 ml/min; Est GFR (Non-African American) 29.1 ml/min; Magnesium 2.4 mg/dl (1.7-2.4); Potassium 3.6 mmol/L (3.5-5.1); Total Protein 7.6 gm/dl (6.0-8.3)
[2023-10-11 17:23] LABS: Troponin I High Sensitivity 16.1 pg/ml (0-20)
[2023-10-11 17:26] LABS: INR 1.1 (0.9-1.1); Partial Thromboplastin Ratio 1.2; Partial Thromboplastin Time 34 Seconds (21-31); Prothrombin Time 11.5 Seconds (9.0-12.0)
--- NOTE | 2023-10-11 17:40 | Electrocardiogram Report ---
Test Reason : Blood Pressure : / mmHG Vent. Rate : 065 BPM Atrial Rate : 065 BPM P-R Int : 180 ms QRS Dur : 126 ms QT Int : 470 ms P-R-T Axes : 026 -66 068 degrees QTc Int : 488 ms Normal sinus rhythm Right bundle branch block old inferior RI Abnormal ECG When compared with ECG of 05-NOV-2016 07:08, [id number] is now Present Confirmed by Juan Mclaughlin ([id number]) on 10/11/2023 5:40:10 PM Referred By: Confirmed By:Tony Mclaughlin
[2023-10-11] MEDS: CEFEPIME 2,000 MG/20 ML VIAL IV STA (17:46)
--- NOTE | 2023-10-11 19:18 | CT Scan Report ---
CT SCAN OF THE ABDOMEN AND PELVIS WITHOUT IV CONTRAST CLINICAL HISTORY: Generalized abdominal pain. Constipation. COMPARISON STUDY: No priors. TECHNIQUE: CT scan of the abdomen and pelvis is performed from the lung bases to the proximal femora. Images are reviewed in the axial, sagittal, and coronal planes. IV contrast was not administered for this examination. Note that the examination was performed in significantly suboptimal fashion withou t oral and IV contrast. A dose lowering technique was utilized adhering to the principles of ALARA. CT DOSE: 1084.86 mGy.cm FINDINGS: Lung bases: The heart is large and without pericardial effusion. The coronary arteries and mitral christopher ulus are densely calcified. The patient is status post midline sternotomy and aortic valve surgery. T here is a chronic-appearing thick walled pleural collection at the left lung base chest CT dated 04/21, which has decreased in size from the 05/07/[address] There is scarring/atelectasis at th e left lung base. No airspace consolidation is seen typical for pneumonia. A small hiatal hernia is n oted. Liver: The unenhanced liver is normal in size, contour, and attenuation. There is no intrahepatic josef iary ductal dilatation. Gallbladder: Unremarkable. Spleen: Normal in size and attenuation. There are calcified splenic granulomas. Pancreas: Unremarkable. Adrenal glands: Unremarkable. Kidneys: The unenhanced kidneys demonstrate mild cortical atrophy and are without hydronephrosis. The re are renal vascular calcifications. No renal calculi are identified and there is no ureteral stone. A 1.4 cm cyst is noted on the left. Abdominal vasculature: There is advanced atherosclerotic calcification of the abdominal aorta which i s normal in caliber. Bowel: The rectal wall appears circumferentially thickened with mild surrounding infiltration. There is mild to moderate colonic diverticulosis without CT evidence of acute diverticulitis. No bowel obst ruction is seen. The appendix is well-visualized and normal. Peritoneum: There is no intraperitoneal free air or abdominal ascites. There is a fat-containing umbi lical hernia. Lymphadenopathy: None. Pelvic viscera: The prostate gland is enlarged and heterogeneous. The bladder wall is thickened/trabe culated indicating chronic outlet obstruction. There are bilateral fat-containing groin hernias. Skeletal structures: The skeletal structures are osteopenic. Moderate lumbosacral spondylosis is obse rved. Degenerative sclerosis is noted in the sacroiliac joints. No lytic or blastic lesions are seen. IMPRESSION: 1. The rectal wall appears thickened and there is perirectal infiltration. Correlate clinically for e vidence of a nonspecific proctitis. If warranted this could be further assessed with direct visualiza tion. 2. Cardiomegaly and a chronic appearing left pleural fluid collection are seen in the lower chest. 3. Colonic diverticulosis without CT evidence of acute diverticulitis. 4. Additional findings as above. ACT 112: Negative or not required by law. Electronically signed by: Oscar Bishop M.D. 10/11/2023 7:17 PM
[2023-10-11 19:57] LABS: Appearance Urine Clear (Clear); Bilirubin Urine Negative (Negative); Blood Urine Negative (Negative); Color Urine Yellow; Glucose Urine UA 3+ (Negative); Ketones Urine Negative (Negative); Leukocyte Esterase Urine Negative (Negative); Nitrite Urine Negative (Negative); Protein Urine Negative (Negative); Urobilinogen Urine Negative (Negative)
--- NOTE | 2023-10-11 20:02 | History & Physical Report ---
Date of Service October 11, 2023 Assessment & Plan (1) Pleural effusion on left: (2) Fecal impaction: (3) FLORENTINO (acute kidney injury): (4) Acute hypotension: (5) HTN (hypertension): (6) Dyslipidemia: (7) DM type 2 (diabetes mellitus, type 2): (8) Coronary artery disease involving coronary bypass graft: (9) Proctitis: Plan 78 year old male with PMH significant for CAD, pleural effusion, HTN, HLD, T2DM presenting with concern for constipation. Initial presentation with soft blood pressures and elevated lactate initially concerning for possible sepsis - however, lactate corrected with fluid resuscitation and no obvious infectious source on work up. Transient hypotension, likely vagal response to bowel movement, now corrected. Follow blood cultures but will discontinue empiric abx. Constipation, Fecal Impaction: CT A/P with rectal wall thickening without evidence of bowel obstruction Patient likely to benefit from routine bowel regimen ie. 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 - patient is asymptomatic, no indication for acute treatment Continue to monitor Recommend outpatient cardiology follow up T2DM: Blood glucose checks ACHS Lantus 5U QAM Sliding scale insulin for meal coverage HTN: Resume home antihypertensives in AM HLD: Continue home Atorvastatin CAD: Continue home aspirin, losartan, metoprolol Dispo: OBS, Med-surg with tele FEN/GI: HH, carb consistent diet VTE ppx: Lovenox Full Code History of Present Illness Primary Care Provider: Henrry Gonzalez MD 78 year old male with PMH significant for CAD, pleural effusion, HTN, HLD, T2DM presenting with concern for constipation. Patient notes last bowel movement was a few days ago, normally has a daily bowel movement. Also notes feeling the need to defecate but was unable to pass bowel movement. Otherwise denies N/V, denies abdominal pain, denies fever/chills. In general, states that bowel movements have been a bit harder since starting an iron supplement a couple months ago. At home, patient tried taking senna but was still unable to have a bowel movement. Denies associated chest pain, shortness of breath, dysuria. ED Course: Labs significant for: Cr 2.11, negative procal, lactate of 3.6 with repeat 1.0 after fluid resuscitation, troponin negative, UA without infectious features CXR with moderate left pleural effusion with dependent consolidation CT A/P with rectal wall thickening, perirectal infiltration, also colonic diverticulosis without evidence of diverticulitis EKG with new finding of Sousa Parkinson White Blood cultures pending S/p 2L NS and Cefepime 2g x1 S/p milk and molasses enema with subsequent large bowel movement Allergies Allergy/AdvReac Type Severity Reaction Status Date / Time vancomycin Allergy Severe Unknown Verified 10/11/23 19:38 Home Medications Medication Instructions Recorded Confirmed Type aspirin 81 mg tablet,delayed 81 mg PO DAILY 10/11/23 10/11/23 History release atorvastatin 40 mg tablet 40 mg PO DAILY 10/11/23 10/11/23 History insulin aspart U-100 100 unit/mL 0 unit subcut USEASDIRECTD 10/11/23 10/11/23 History (3 mL) subcutaneous pen (Novolog FlexPen U-100 Insulin aspart) insulin glargine 100 unit/mL (3 12 unit subcut QPM PRN .BSG >200 10/11/23 10/11/23 History mL) subcutaneous pen (Lantus Solostar U-100 Insulin) losartan 25 mg tablet 25 mg PO DAILY 10/11/23 10/11/23 History metoprolol succinate 25 mg 25 mg PO DAILY 10/11/23 10/11/23 History tablet,extended release 24 hr multivitamin 1 tab PO DAILY 10/11/23 10/11/23 History omega-3 fatty acids 1,000 mg 1,000 mg PO DAILY 10/11/23 10/11/23 History capsule sertraline 50 mg tablet 50 mg PO DAILY 10/11/23 10/11/23 History torsemide 20 mg tablet 20 mg PO QAM 10/11/23 10/11/23 History Past Med/Surg History Medical History (Updated 10/12/23 @ 10:10 by Ricardo Rivera MD) Coronary artery disease involving coronary bypass graft Pneumothorax Pleural effusion Ex-smoker Dyslipidemia HTN (hypertension) DM type 2 (diabetes mellitus, type 2) Hyperglycemia Social History Smoking Status: Former smoker Tobacco Type: Cigarettes Age Started Using Tobacco: 19; Age Quit Using Tobacco: 48; Do You Dip or Chew Tobacco: No; Tobacco Cessation Education Requested by Patient: No Hx Alcohol Use: Yes Alcohol type: beer Hx Substance Use: No Preferred Language: Luxembourgish Communication Ability: Effective 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 No acute distress Cardiac: Regular rate and rhythm, no murmurs appreciated Respiratory: Lungs clear to auscultation bilaterally, No increased work of breathing Abdominal: Soft, non-tender, non-distended. Bowel sounds present. Extremities: No lower extremity edema, calves non-tender bilaterally Psych: mood affect congruence Results & Data Results & Data Vital Signs (Past 12 Hours) Vital Signs Temp Pulse Pulse Resp BP BP Pulse Ox 10/11/23 17:30 59 L 16 104/59 L 94 10/11/23 16:32 64 20 94 10/11/23 16:32 96/53 L 10/11/23 16:30 65 18 93 10/11/23 16:24 66 22 94 10/11/23 16:24 83/43 L 10/11/23 16:24 66 22 83/43 L 94 10/11/23 16:20 58 L 92 10/11/23 16:16 60 10/11/23 16:15 63 18 92 10/11/23 16:11 74/41 L 10/11/23 16:11 61 19 92 10/11/23 16:04 62 20 79/37 L 94 10/11/23 14:28 36.3 C L 75 20 99/61 L 93 O2 Del Method 10/11/23 17:30 Room Air 10/11/23 16:32 10/11/23 16:32 10/11/23 16:30 10/11/23 16:24 10/11/23 16:24 10/11/23 16:24 Room Air 10/11/23 16:20 Room Air 10/11/23 16:16 10/11/23 16:15 10/11/23 16:11 10/11/23 16:11 10/11/23 16:04 Room Air 10/11/23 14:28 Supervising Physician Co-Signing Physician Notes I personally saw and examined the patient. I verified all bernal points and agree with resident physician Dr David Chowdhury, with the following exceptions and/or additions: 78 year old male presents to the ER with 3 days of constipation. Fecal impaction relived with enema O/E HS RRR, no murmurs, Chest CTAB, Abdo SNT A/P Fecal impaction with proctitis - no signs of infection at this time with normal WBC and lack of fever, would favor holding off antibiotics in setting of clear impaction likely causing this proctitis Hypotension - vagal mediated in setting bowel movement with hypovolemia, unlikely to recur now with adequate fluid resuscitation and low suspicion of infection as above. Possible FLORENTINO - unknown baseline, repeat BMP following fluid resuscitation given in the ER. Resident Activity Tracking Resident Involvement: Resident Care Provided Care Provided: Adult Hospital Medicine
[2023-10-11] MEDS ORDERED: GLUCOSE 10 TAB/TUBE PO PRN (20:47)
[2023-10-11] MEDS ORDERED: GLUCOSE 40% GEL 15 GM TUBE PO PRN (20:47)
[2023-10-11] MEDS ORDERED: POLYETHYLENE (MIRALAX) 17 GM PACK PO PRN (20:47)
[2023-10-11] MEDS ORDERED: DEXTROSE 50% 50 ML SYRINGE IV PRN (20:47)
[2023-10-11] MEDS ORDERED: CARBOHYDRATES FOR HYPOGLYCEMIA PO PRN (20:47)
[2023-10-11] MEDS ORDERED: ACETAMINOPHEN 325 MG TAB PO PRN (20:47)
[2023-10-11] MEDS ORDERED: GLUCAGON FOR INJ 1 MG VIAL SQ PRN (20:47)
[2023-10-11] MEDS: INSULIN ASPART PER UNIT CHARGE SC SCH (21:35)
[2023-10-12 07:21] LABS: BUN Creatinine Ratio 23.3 (10-20); Calcium 8.8 mg/dl (8.6-10.3); Creatinine Clr Calc Pharmacy 33.1 ml/min; Est GFR (African American) 43.2 ml/min; Est GFR (Non-African American) 37.3 ml/min; Potassium 3.8 mmol/L (3.5-5.1)
--- NOTE | 2023-10-12 07:51 | Hospitalist Progress Note ---
Date of Service October 12, 2023 Assessment & Plan (1) Pleural effusion on left: (2) Fecal impaction: (3) FLORENTINO (acute kidney injury): (4) Acute hypotension: (5) HTN (hypertension): (6) Dyslipidemia: (7) DM type 2 (diabetes mellitus, type 2): (8) Coronary artery disease involving coronary bypass graft: (9) Positive blood cultures: Plan: 07/25 GPC, PCR biofire w/ staph. ?contaminant. Will monitor however ?GI source, proctitis related. WBC wnl, afebrile Did get dose Cefepime x1 in ER on admission Consideration for abx - will discuss w/ supervising provider f/u blood cultures (10) Proctitis: Plan 78 year old male with PMH significant for CAD, pleural effusion, HTN, HLD, T2DM presenting with concern for constipation. Initial presentation with soft blood pressures and elevated lactate initially concerning for possible sepsis - however, lactate corrected with fluid resuscitation and no obvious infectious source on work up. Transient hypotension, likely vagal response to bowel movement, now corrected. Follow blood cultures but will discontinue empiric abx. -Of note, patient w/ hx CAD (s/p cath November 2022, found w/ 70% obstruction distal L main, 100% obstruction in mid LAD w/ developement of collaterals as well as 90% obstruction over large diagonal vessel of LAD and diffuse disease within R coronary causing 40-45% obtstruction and severe aortic stenosis. Underwent CABD x4 on 12/07/2022 with aortic valve replacement. Post-op course complicated by bradycardia requiring temporary pacemaker and paroxysms of afib). --> Will need to inquire about eliquis as appears was discharged on ASA/Eliquis and toprol Constipation, Fecal Impaction: CT A/P with rectal wall thickening without evidence of bowel obstruction Patient likely to benefit from routine bowel regimen ie. 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 - patient is asymptomatic, no indication for acute treatment Continue to monitor Recommend outpatient cardiology follow up T2DM: Blood glucose checks ACHS Lantus 5U QAM Sliding scale insulin for meal coverage HTN: Resume home antihypertensives in AM HLD: Continue home Atorvastatin CAD: Continue home aspirin, losartan, metoprolol Dispo: OBS, Med-surg with tele FEN/GI: HH, carb consistent diet VTE ppx: Lovenox Full Code Admission and Anticipated Discharge Date Admission Date: October 11, 2023 Results & Data Results & Data Vital Signs (Past 12 Hours) Vital Signs Temp Pulse Pulse Resp BP BP BP 10/12/23 07:12 76 10/12/23 03:07 36.5 C 74 18 143/74 H 10/11/23 22:39 36.6 C 75 20 143/76 H 10/11/23 21:56 79 10/11/23 21:04 80 10/11/23 21:01 36.5 C 75 20 165/82 H 10/11/23 21:00 10/11/23 20:15 66 13 141/71 H 10/11/23 20:00 64 13 128/78 Pulse Ox O2 Del Method 10/12/23 07:12 10/12/23 03:07 94 Room Air 10/11/23 22:39 94 Room Air 10/11/23 21:56 10/11/23 21:04 10/11/23 21:01 96 Room Air 10/11/23 21:00 Room Air 10/11/23 20:15 97 10/11/23 20:00 95 PG Care Time/CCT Total # of Minutes Spent Total Time Spent with Patient: Total time spent is greater than 50% in coordination of care (as documented) at patient's floor/unit and/or counseling patient: Coding Diagnoses Pleural effusion on left J90 Fecal impaction K56.41 FLORENTINO (acute kidney injury) N17.9 Acute hypotension I95.9 HTN (hypertension) I10 Dyslipidemia E78.5 DM type 2 (diabetes mellitus, type 2) E11.9 Coronary artery disease involving coronary bypass graft I25.810 Positive blood cultures R78.81 Proctitis K62.89
[2023-10-12] MEDS: ATORVASTATIN 40 MG TAB PO SCH (08:17)
[2023-10-12] MEDS: ASPIRIN 81 MG ECTAB PO SCH (08:17)
[2023-10-12] MEDS: LOSARTAN POTASSIUM 25 MG TAB PO SCH (08:17)
[2023-10-12] MEDS: TORSEMIDE 20 MG TAB PO SCH (08:18)
[2023-10-12] MEDS: ENOXAPARIN INJ 30 MG/0.3 ML SYR SQ SCH (08:18)
[2023-10-12] MEDS: SERTRALINE HCL 50 MG TABLET PO SCH (08:18)
[2023-10-12] MEDS: METOPROLOL SUCC 25MG EXT REL TAB PO SCH (08:18)
--- OUTSIDE RECORDS SUMMARY | 2023-10-12 08:34 | External Medical Summary | Summary of Care ---
Author Name Unknown Organization [facility] Address [address] [place] [address] Phone [phone] Care Team Providers Care Double Needle Stitcher Name Role Phone Nitin Gonzalez MD Primary Care Provider U [email or web address] Reason for Visit * Reason Onset Date Comments Appointment 10/09/2023 Encounter Details Date Type Department Care Team (Late st Contact Info) Description 10/09/2023 [facility]phone [facility] [address] [place] [address] Hector Simeon MD [address] [facility] [place] [address] Appointment Allergies Active Allergy Reactions Criticality Noted Date Comments Vancomycin 07/31/2018 Made him "crazy" Renal failure documented as of this encounter (statuses as of 10/09/2023) Medications Medication Sig Dispensed Refills Start Date End Date Status aspirin 81 MG TBEC Take 1 Tablet by mouth in the morning. 0 Active [place]-3 Fatty Acids (FISH OIL) 500 MG Capsule Take 1 Capsule by mouth in the morning. 0 Active Multiple Vitamins-Minerals (MULTIVITAMIN MEN 50+) TABS Take 1 Tab by mouth daily. 0 Active FREESTYLE LANCETS MISC Check glucose 4 times a day E11.9 120 Each 5 06/12/2017 Active Glucose Blood (ONETOUCH ULTRA BLUE) STRPIndications:D M type 2, goal HbA1c < 8% (HCC) test THREE TIMES DAILY 200 Strip 11 04/24/2019 Active Blood Glucose Monitoring Suppl (ONETOUCH ULTRA 2) w/Device KITIndications:DM type 2, goal HbA1c < 8% (HCC) Test 3 times daily; dx E11.9 insulin dependant 1 Each 0 04/27/2019 Active ONETOUCH ULTRASOFT LANCETS MISCIndications:D M type 2, goal HbA1c < 8% (HCC) Test 3 times daily; dx E11.9 insulin dependent 2 Box Dosing Unit 11 04/27/2019 Active NOVOFINE 32G PEN NEEDLE 32G X 6 MM MISC Use as directed 100 Each 5 07/07/2019 Active metoprolol succinate XL (TOPROL XL) 25 MG KS55Omzahzncgan:I schemic cardiomyopathy,HT N, goal below 140/90 Take 1 Tab by mouth daily. 90 Tab 3 09/02/2019 Active Additional Information Patient taking differently: 50 mgOral Daily(AM), Reported on 04/04/2023 insulin aspart (NOVOLOG FLEXPEN) 100 UNIT/ML SOPNIndications:D M type 2, goal HbA1c < 8% (HCC) Administer 10 units subcutaneously once daily before largest meal of the day if blood sugar is over 200. Dx E11.9 5 Pre-filled Pen Syringe Dosing Unit 5 09/30/2019 Active zoster vac recomb adjuvanted (SHINGRIX) 50 MCG/0.5ML injectionIndicati ons:Need for vaccination Inject 0.5 mL into a large muscle now and repeat dose in 60 to 180 days. Please fax date this was given to our office. 1 Each 1 10/01/2019 Active atorvaSTATin (LIPITOR) 40 MG TabletIndications :Coronary artery disease involving [place] coronary artery of [place] heart without angina pectoris Take 1 Tab by mouth daily. 90 Tab 3 10/23/2019 Active insulin glargine (LANTUS SOLOSTAR) 100 UNIT/ML SOPNIndications:D M type 2, goal HbA1c < 8% (HCC) INJECT 25 UNITS SUBCUTANEOUSLY DAILY AT BEDTIME 30 mL 2 03/07/2020 Active Losartan Potassium 25 MG Oral Tablet (Cozaar) Take 1 Tablet by mouth in the morning. 0 06/19/2022 Active Torsemide 20 MG Oral Tablet (Demadex)Indicati ons:Hypertension associated with stage 3b chronic kidney disease due to type 2 diabetes mellitus (HCC) Take 1 Tablet by mouth in the morning. 30 Tablet 1 04/12/2023 Active Torsemide 20 MG Oral Tablet (Demadex)Indicati ons:Hypertension associated with stage 3b chronic kidney disease due to type 2 diabetes mellitus (HCC) Take 1 Tablet by mouth in the morning. 90 Tablet 3 04/12/2023 Active documented as of this encounter (statuses as of 10/09/2023) Active Problems Problem Noted Date Diagnosed Date Chronic kidney disease, stage 3b 01/03/2021 Overview: Per CKD protocol Hypertension associated with stage 3b chronic kidney disease due to type 2 diabetes mellitus 11/29/2020 Overview: Per CKD protocol Callous ulcer, limited to breakdown of skin 10/2018 Nonrheumatic aortic valve stenosis 02/10/2019 Overview: Mild to moderate- Echo 2017 Current use of insulin 07/31/2018 Acquired absence of other left toe(s) 07/31/2018 Dyslipidemia, goal LDL below 70 02/05/2017 Microalbuminuria due to type 2 diabetes mellitus 12/06/2016 Ischemic cardiomyopathy 12/04/2016 DM type 2, goal HbA1c < 8% 11/09/2016 Diabetes mellitus with peripheral vascular disea se 11/09/2016 HTN, goal below 140/90 11/09/2016 PVD (peripheral vascular disease) 11/09/2016 Overview: In a combination code, resolving documented as of this encounter (statuses as of 10/09/2023) Resolved Problems Problem Noted Date Diagnosed Date Resolved Date Type 2 DM with CKD stage 3 and hypertension 07/31/2018 12/01/2020 Overview: Per CKD protocol Acquired absence of left foot 07/31/2018 07/31/2018 Pyogenic inflammation of bone 01/16/2018 07/31/2018 documented as of this encounter (statuses as of 10/09/2023) Immunizations Name Administration Dates Next Due Pneumococcal Conjugate Vacc, 13 Valent (Prevnar) 07/31/2018 Pneumococcal Polysaccharide PPV23 (Pneumovax) Seasonal Influenza, PF, 6 M & above, IM , (FluLaval or Fluzone) 05/07/2018,06/05/2017 Seasonal Influenza, Trivalent, Adjuvanted, 65+ y rs 04/24/2019 documented as of this encounter Social History Tobacco Use Types Packs/Day Years Used Date Smoking Tobacco: Former Cigarettes Smokeless Tobacco: Never Comments:Quit smoking 20-30 years ago. Alcohol Use Standard Drinks/Week Comments Yes 0 (1 standard drink = 0.6 oz pur e alcohol) 1-2 beers, socially PHQ-2 Answer Date Recorded PHQ-2 Score 0 02/10/2019 Hunger Vital Sign Answer Date Recorded Worried About Running Out of Food in the Last Ye ar Never true 02/10/2019 Ran Out of Food in the Last Year Never true 02/10/2019 Sex and Gender Information Value Date Recorded Sex Assigned at Not on file Gender Identity Not on file Sexual Orientation Not on file Job Start Date Occupation Industry Not on file Not on file Not on file documented as of this encounter Miscellaneous Notes * Telephone Encounter - Annie Chavis OSA - 10/09/2023 8:41 AM EDT 10/09/23 Called patient, left message. Trying to get patient scheduled with Nephrology for appointment. Needed to be seen in July [address] Simeon. Patient is on the lost to follow-up report. My G message being sent out as well. documented in this encounter Plan of Treatment Scheduled Procedures Name Priority Associated Diagnoses Date/Ti me COLONOSCOPY FLEXIBLE PROXIMAL DIAGNOSTIC Recall History of colon polyps Health Maintenance Due Date Last Done Comments Hepatitis C Screening 1963 DTaP,Tdap,and Td Vaccines (1 - Tdap) 02/23/1964 Depression Screening 02/11/2020 02/10/2019 HbA1c 04/02/2020 10/01/2019, 03/22, 07/31/2018, Additional history exists Albumin/Creatinine Ratio 09/30/2020 020, 07/31/2018, 01/16/2018, Additional history exists Diabetic Eye Exam 09/30/2020 10/01/2019 Diabetic Foot Exam 09/30/2020 10/01/2019, 0 07/31/2018, 07/09/2017 COVID-19 Vaccine ( season) 2023 08/01/2021, 09/15/2020, 08/25/2020 Influenza Vaccine (FLU shot) (#1) 2023 07/03/2021, 04/24/2019, 05/07/2018, Additional history exists GFR 07/03/2023 01/01/2023, 12/20, 12/28/2022, Additional history exists CKD PHOS USE SMARTSET 23868 01/01/202412/20, 12/28/2022, 12/26/2022, Additional history exists CKD HGB USE SMARTSET 24085 01/02/202401/01, 12/28/2022, 12/25/2022, Additional history exists COLONOSCOPY-EVERY 5 YRS AGES 18-100 06/10/2024 06/10/2019, 06/10/2019 Pneumococcal Vaccine: 65+ Years Completed 07/03/2021, 04/13/2021, 10/01/2019, Additional history exists Zoster Vaccines Completed 07/03/2021, 04/13/2021 GARDASIL-HPV IMMUNIZATION SERIES Aged Out No longer eligible based on patient's age to complete this topic Hepatitis B Aged Out No longer eligi ble based on patient's age to complete this topic MENINGOCOCCAL (MENACTRA/MENVEO) Aged Out No longer eligible based on patient's age to complete this topic documented as of this encounter Medical Devices Not on filedocumented as of this encounter Care Teams Double Needle Stitcher Relationship Specialty Start Date End Date Nitin Gonzalez MD PCP - General Family Medicine 10/18/22 documented as of this encounter
[2023-10-12] MEDS: LANTUS PER UNIT CHARGE SQ SCH (08:59)
[2023-10-12 09:00] LABS: Albumin Globulin Ratio 0.9 (0.9-2); Albumin Level 3.3 gm/dl (3.4-5.0); Bilirubin,Total 0.5 mg/dl (0.2-1.0); Globulin 3.7 gm/dl (2.5-4.0); Magnesium 2.3 mg/dl (1.7-2.4)
[2023-10-12 09:03] LABS: Basophils # (auto) 0.03 K/uL (0.00-0.20); Basophils % (auto) 0.4 %; Eosinophils # (auto) 0.24 K/uL (0.00-0.50); Eosinophils % (auto) 3.1 %; Hematocrit (blood only) 34.9 % (42.0-52.0); Hemoglobin 11.5 g/dl (14.0-18.0); Immature Granulocytes # (auto) 0.06 K/uL (0.01-0.20); Immature Granulocytes % (auto) 0.8 %; Lymphocytes # (auto) 1.09 K/uL (1.20-3.40); Lymphocytes % (auto) 13.9 %; Mean Corpuscular Hemoglobin 29.1 pg (25.0-34.0); Mean Corpuscular Volume 88.4 fL (80.0-100.0); Mean Platelet Volume 9.8 fL (9.4-12.4); Monocytes # (auto) 1.08 K/uL (0.11-0.59); Monocytes % (auto) 13.8 %; Neutrophils # (auto) 5.33 K/uL (1.40-6.50); Platelet Count 253 K/uL (130-400); RDW Coefficient of Variation 14.2 % (11.5-14.5); RDW Standard Deviation 45.7 fL (36.4-46.3); Red Blood Count 3.95 M/uL (4.70-6.10); White Blood Count 7.83 K/ul (4.8-10.8)
[2023-10-12 09:15] LABS: Thyroid Stimulating Hormone 1.27 uIu/ml (0.300-4.500)
--- NOTE | 2023-10-12 10:14 | Billing Data ---
Date of Service October 11, 2023 Coding Level of Care Code 00608 INT INP/OBS CARE
--- NOTE | 2023-10-12 10:42 | Pulmonary Consultation ---
Date of Consultation October 12, 2023 Assessment & Plan (1) Pleural effusion on left: Plan Impression: 78-year-old male with chronic lymphocytic pleural effusion and recent tap demonstrating and trapped or trapped lung. This may be secondary to the patient's bypass. He is asymptomatic and was actually admitted for abdominal complaints. Recommendations: 1. Pleural effusion: Chronic in nature and asymptomatic. No indication for acute evaluation during this hospitalization. He can follow-up with Dr. Patricia in the outpatient setting. No indication for repeat tap. If this is a trapped lung, the only alternative would be surgical decortication which does not appear to be indicated in this asymptomatic 78-year-old patient. Steroids at this point time would be unlikely to resolve a post bypass effusion. This point in time the patient has no pulmonary complaints. Pulmonary will sign off. Feel free to contact us with questions or concerns History of Present Illness Attending Physician: Clifford Randle MD History of Present Illness Asked by hospitalist to evaluate this patient with chronic lymphocytic pleural effusion. History is obtained from discussion with patient as well as review electronic medical record. The patient is a 78-year-old male who is established with Dr. patricia in the outpatient setting. He has a history of a lymphocytic effusion. He was initially seen in March 2023. He undergone bypass surgery in December 2022. Initial tap was performed March 2023 with removal of 1500 cc of fluid. Follow-up CT post procedure demonstrated persistent effusion. Follow-up tap was performed by radiology in July. 1400 cc of fluid was removed. He was felt to have a pneumo ex vacuo post procedurally. Studies were consistent with lymphocytic exudate may have been related to bypass. He was seen back in July with plans to follow-up in pulmonary in 6 to 8 months with a PFT. Patient states that he has been quite active and has no respiratory limitations currently. He specifically denies any cough, shortness of breath, chest pain or palpitations. He presented with obstipation and was admitted. Due to the persistent effusion pulmonary was consulted. Allergies Allergy/AdvReac Type Severity Reaction Status Date / Time vancomycin Allergy Severe Unknown Verified 10/11/23 19:38 Home Medications Medication Instructions Recorded Confirmed Type aspirin 81 mg tablet,delayed 81 mg PO DAILY 10/11/23 10/11/23 History release atorvastatin 40 mg tablet 40 mg PO DAILY 10/11/23 10/11/23 History insulin aspart U-100 100 unit/mL 0 unit subcut USEASDIRECTD 10/11/23 10/11/23 History (3 mL) subcutaneous pen (Novolog FlexPen U-100 Insulin aspart) insulin glargine 100 unit/mL (3 12 unit subcut QPM PRN .BSG >200 10/11/23 10/11/23 History mL) subcutaneous pen (Lantus Solostar U-100 Insulin) losartan 25 mg tablet 25 mg PO DAILY 10/11/23 10/11/23 History metoprolol succinate 25 mg 25 mg PO DAILY 10/11/23 10/11/23 History tablet,extended release 24 hr multivitamin 1 tab PO DAILY 10/11/23 10/11/23 History omega-3 fatty acids 1,000 mg 1,000 mg PO DAILY 10/11/23 10/11/23 History capsule sertraline 50 mg tablet 50 mg PO DAILY 10/11/23 10/11/23 History torsemide 20 mg tablet 20 mg PO QAM 10/11/23 10/11/23 History Patient History Medical History (Updated 10/12/23 @ 10:10 by Ricardo Rivera MD) Coronary artery disease involving coronary bypass graft Pneumothorax Pleural effusion Ex-smoker Dyslipidemia HTN (hypertension) DM type 2 (diabetes mellitus, type 2) Hyperglycemia Social History Smoking Status: Former smoker Tobacco Type: Cigarettes Age Started Using Tobacco: 19; Age Quit Using Tobacco: 48; Do You Dip or Chew Tobacco: No; Tobacco Cessation Education Requested by Patient: No Hx Alcohol Use: Yes Alcohol type: beer Hx Substance Use: No Preferred Language: [place] Communication Ability: Effective Combination Welder Required: No Beliefs That Will Affect Care: None Current Living Situation: Spouse Current Living Situation Comment: lives with Feels Safe at Home: Yes Safety Concerns: Feels Safe At This Time Assistive Devices: Denture - Upper and Glasses Review of Systems Review of Systems: Please refer to admission H&P Physical Exam Constitutional: WD/WN, vitals as above Neck: trachea midline, no thyromegaly Respiratory: no respiratory distress, no labored breathing, no cough and not tachypneic Auscultation: + diminished lung sounds Decreased breath sounds at the left lung base Cardiovascular: RRR, no murmur, no edema Gastrointestinal (Abdomen): normal bowel sounds, soft, nontender, no hepatosplenomegaly Musculoskeletal: Extremities: extremities normal to inspection Skin: no rashes, warm and dry Neurologic: Nonfocal exam Lymphatic: no cervical lymphadenopathy Results & Data Results & Data Vital Signs (Past 12 Hours) Vital Signs Temp Pulse Pulse Resp BP Pulse Ox O2 Del Method 10/12/23 07:56 36.8 C 73 18 138/72 96 Room Air 10/12/23 07:12 76 10/12/23 03:07 36.5 C 74 18 143/74 H 94 Room Air 10/11/23 22:39 36.6 C 75 20 143/76 H 94 Room Air Critical Care Results & Data Vital Signs (Past 12 Hours) Vital Signs Temp Pulse Pulse Resp BP Pulse Ox O2 Del Method 10/12/23 07:56 36.8 C 73 18 138/72 96 Room Air 10/12/23 07:12 76 10/12/23 03:07 36.5 C 74 18 143/74 H 94 Room Air Lab & Micro Results (Past 24 Hours) RBC 3.95 M/uL (4.70-6.10) L 10/12/23 WBC 7.83 K/ul (4.8-10.8) 10/12/23 Hgb 11.5 g/dl (14.0-18.0) L 10/12/23 Hct 34.9 % (42.0-52.0) L 10/12/23 MCV 88.4 fL (80.0-100.0) 10/12/23 MCH 29.1 pg (25.0-34.0) 10/12/23 MCHC 33.0 g/dL (32.0-36.0) 10/12/23 RDW Standard Deviation 45.7 fL (36.4-46.3) 10/12/23 RDW Coefficient of Variation 14.2 % (11.5-14.5) 10/12/23 Plt Count 253 K/uL (130-400) 10/12/23 MPV 9.8 fL (9.4-12.4) 10/12/23 Neutrophils (%) (Auto) 68.0 % 10/12/23 Lymphocytes (%) (Auto) 13.9 % 10/12/23 Monocytes # (Auto) 1.08 K/uL (0.11-0.59) H 10/12/23 Eosinophils # (Auto) 0.24 K/uL (0.00-0.50) 10/12/23 Immature Granulocyte % (Auto) 0.8 % 10/12/23 Neutrophils # (Auto) 5.33 K/uL (1.40-6.50) 10/12/23 Lymphocytes # (Auto) 1.09 K/uL (1.20-3.40) L 10/12/23 Monocytes # (Auto) 1.08 K/uL (0.11-0.59) H 10/12/23 Eosinophils # (Auto) 0.24 K/uL (0.00-0.50) 10/12/23 Basophils # (Auto) 0.03 K/uL (0.00-0.20) 10/12/23 Immature Granulocyte # (Auto) 0.06 K/uL (0.01-0.20) 4 Na 141 mmol/L (136-145) 10/12/23 K 3.8 mmol/L (3.5-5.1) 10/12/23 Cl 104 mmol/L (98-107) 10/12/23 CO2 31 mmol/L (21-32) 10/12/23 Anion Gap 6 (3-11) 10/12/23 BUN 40 mg/dl (6-23) H 10/12/23 Creatinine 1.72 mg/dl (0.6-1.4) H 10/12/23 Estimated GFR ( Amer) 43.2 ml/min 10/12/23 Estimated GFR (Non-Af Amer) 37.3 ml/min 10/12/23 BUN/Creatinine Ratio 23.3 (10-20) H 10/12/23 Glu 135 mg/dl (70-99(Fasting)) H 10/12/23 Ca 8.8 mg/dl (8.6-10.3) 10/12/23 Total Bilirubin 0.5 mg/dl (0.2-1.0) 10/12/23 Direct Bilirubin 0.1 mg/dl (0-0.2) 10/11/23 AST 18 U/L (13-39) 10/12/23 ALT 9 U/L (7-52) 10/12/23 Alkaline Phosphatase 54 U/L (34-104) 10/12/23 TP 7.0 gm/dl (6.0-8.3) 10/12/23 Albumin 3.3 gm/dl (3.4-5.0) L 10/12/23 Globulin 3.7 gm/dl (2.5-4.0) 10/12/23 Albumin/Globulin Ratio 0.9 (0.9-2) 10/12/23 Mg 2.3 mg/dl (1.7-2.4) 10/12/23 05:33 Calcium Level 8.8 mg/dl (8.6-10.3) 10/12/23 05:33 Prothromb Time International Ratio 1.1 (0.9-1.1) 10/11/23 16:2 2 Venous Blood pH 7.37 (7.36-7.41) 10/11/23 16:40 Venous Blood Partial Pressure CO2 56 mmHg (38-50) H 10/11/23 16 :40 Venous Blood Partial Pressure O2 23 mmHg 10/11/23 16:40 Venous Blood HCO3 32 mmol/L 10/11/23 16:40 Venous Blood Base Excess 5.5 mEq/L 10/11/23 16:40 Venous Blood Oxygen Saturation < 60.0 % 10/11/23 16:40 Diagnostic Findings (Past 24 Hours) Chest X-Ray 10/11/23 16:12 SINGLE VIEW CHEST CLINICAL HISTORY: Sepsis. FINDINGS: An AP, portable, upright chest radiograph is compared to study dated 08/16/2023. Correlation is made with chest CT dated 05/07/2023. The patient is status post midline sternotomy and cardiac valve surgery. The heart is mildly enlarged noting atherosclerotic calcification of the thoracic aorta. The pulmonary vasculature is noncongested. Chronic interstitial thickening is similar to previous. There is a moderate left pleural effusion with left basilar consolidation. The right lung appears clear. No pneumothorax is seen. The skeletal structures are osteopenic. The bony thorax is grossly intact. IMPRESSION: 1. Cardiomegaly without radiographic evidence of congestive failure. 2. Moderate left pleural effusion with dependent consolidation. ACT 112: Negative or not required by law. Electronically signed by: Oscar Bishop M.D. 10/11/2023 5:15 PM Abdomen/Pelvis CT 10/11/23 16:50 CT SCAN OF THE ABDOMEN AND PELVIS WITHOUT IV CONTRAST CLINICAL HISTORY: Generalized abdominal pain. Constipation. COMPARISON STUDY: No priors. TECHNIQUE: CT scan of the abdomen and pelvis is performed from the lung bases to the proximal femora. Images are reviewed in the axial, sagittal, and coronal planes. IV contrast was not administered for this examination. Note that the examination was performed in significantly suboptimal fashion without oral and IV contrast. A dose lowering technique was utilized adhering to the principles o f ALARA. CT DOSE: 1084.86 mGy.cm FINDINGS: Lung bases: The heart is large and without pericardial effusion. The coronary a rteries and mitral annulus are densely calcified. The patient is status post midline sternotomy and aortic valve surgery. There is a chronic-appearing thick walled pleural collection at the left lung base chest CT dated 05/07/2023, which has decreased in size from the 05/07/[address] There is scarring/atelectasis at the left lung base. No airspace consolidation is seen typical for pneumonia. A small hiatal hernia is noted. Liver: The unenhanced liver is normal in size, contour, and attenuation. There is no intrahepatic biliary ductal dilatation. Gallbladder: Unremarkable. Spleen: Normal in size and attenuation. There are calcified splenic granulomas. Pancreas: Unremarkable. Adrenal glands: Unremarkable. Kidneys: The unenhanced kidneys demonstrate mild cortical atrophy and are without hydronephrosis. There are renal vascular calcifications. No renal calculi are identified and there is no ureteral stone. A 1.4 cm cyst is noted on the left. Abdominal vasculature: There is advanced atherosclerotic calcification of the abdominal aorta which is normal in caliber. Bowel: The rectal wall appears circumferentially thickened with mild surrounding infiltration. There is mild to moderate colonic diverticulosis without CT evidence of acute diverticulitis. No bowel obstruction is seen. The appendix is well-visualized and normal. Peritoneum: There is no intraperitoneal free air or abdominal ascites. There is a fat-containing umbilical hernia. Lymphadenopathy: None. Pelvic viscera: The prostate gland is enlarged and heterogeneous. The bladder wall is thickened/trabeculated indicating chronic outlet obstruction. There are bilateral fat-containing groin hernias. Skeletal structures: The skeletal structures are osteopenic. Moderate lumbosacral spondylosis is observed. Degenerative sclerosis is noted in the sacroiliac joints. No lytic or blastic lesions are seen. IMPRESSION: 1. The rectal wall appears thickened and there is perirectal infiltration. Correlate clinically for evidence of a nonspecific proctitis. If warranted this could be further assessed with direct visualization. 2. Cardiomegaly and a chronic appearing left pleural fluid collection are seen in the lower chest. 3. Colonic diverticulosis without CT evidence of acute diverticulitis. 4. Additional findings as above. ACT 112: Negative or not required by law. Electronically signed by: Oscar Bishop M.D. 10/11/2023 7:17 PM I & O Totals 24 Hours 10/11/23 10/12/23 10/13/23 06:59 06:59 06:59 Intake Total 2200 / 2200 Balance 2200 / 2200 Cumulative 10/11/23 14:21 thru 10/12/23 06:17 Intake Total 2200 Balance 2200 RT Ventilator Mngmt (Last Documented) Ventilator Ordered Settings Respiratory Rate 18 10/12/23 07:56 Ventilator - PT Measurements Respiratory Rate 18 PG Care Time/CCT Total # of Minutes Spent Total Time Spent with Patient: Total time spent is greater than 50% in coordination of care (as documented) at patient's floor/unit and/or counseling patient: Coding Level of Care Code 53329 INT INP/OBS CARE 3/75MIN Diagnoses Pleural effusion on left J90
[2023-10-12 11:53] LABS: A calco-baum cmplx NotReported Not Detected (NotDetected); Bact fragilis Not Reported Not Detected (NotDetected); Blood Culture Id Panel See PCR Comment (NotDetected); C auris Not Reported Not Detected (NotDetected); Calbicans Not Reported Not Detected (NotDetected); Candida glabrata Not Reported Not Detected (NotDetected); Candida krusei Not Reported Not Detected (NotDetected); Cneoformans/gatti Not Reported Not Detected (NotDetected); Cparapsilosis Not Reported Not Detected (NotDetected); E cloacae compx Not Reported Not Detected (NotDetected); Efaecalis Not Reported Not Detected (NotDetected); Efaecium Not Reported Not Detected (NotDetected); Enterobacterales Not Reported Not Detected (NotDetected); Escherichia coli Not Reported Not Detected (NotDetected); H influenzae Not Reported Not Detected (NotDetected); K aerogenes Not Reported Not Detected (NotDetected); Koxytoca Not Reported Not Detected (NotDetected); Kpneumoniae grp Not Reported Not Detected (NotDetected); Lmonocyt Not Reported Not Detected (NotDetected); N meningitidis Not Reported Not Detected (NotDetected); P aeruginosa Not Reported Not Detected (NotDetected); Proteus spp Not Reported Not Detected (NotDetected); Salmonella spp Not Reported Not Detected (NotDetected); Smarcescens Not Reported Not Detected (NotDetected); Staph lugdunensis Not Reported Not Detected (NotDetected); Staph spp. Not Reported DETECTED (NotDetected); Staphaureus Not Reported Not Detected (NotDetected); Staphepi Not Reported Not Detected (NotDetected); Stenmaltophilia Not Reported Not Detected (NotDetected); Strep agal(GrpB) Not Reported Not Detected (NotDetected); Strep pneum Not Reported Not Detected (NotDetected); Strep pyog (GrpA) Not Reported Not Detected (NotDetected); Strep spp Not Reported Not Detected (NotDetected)
[2023-10-12 12:01] LABS: Staphylococcus spp. DETECTED (NotDetected)
--- NOTE | 2023-10-12 12:38 | Discharge Summary ---
Date of Service October 12, 2023 Admission HPI Per Admitting Provider 78 year old male with PMH significant for CAD, pleural effusion, HTN, HLD, T2DM presenting with concern for constipation. Patient notes last bowel movement was a few days ago, normally has a daily bowel movement. Also notes feeling the need to defecate but was unable to pass bowel movement. Otherwise denies N/V, denies abdominal pain, denies fever/chills. In general, states that bowel movements have been a bit harder since starting an iron supplement a couple months ago. At home, patient tried taking senna but was still unable to have a bowel movement. Denies associated chest pain, shortness of breath, dysuria. ED Course: Labs significant for: Cr 2.11, negative procal, lactate of 3.6 with repeat 1.0 after fluid resuscitation, troponin negative, UA without infectious features CXR with moderate left pleural effusion with dependent consolidation CT A/P with rectal wall thickening, perirectal infiltration, also colonic diverticulosis without evidence of diverticulitis EKG with new finding of Sousa Parkinson White Blood cultures pending S/p 2L NS and Cefepime 2g x1 S/p milk and molasses enema with subsequent large bowel movement Admission Exam Per Admitting Provider General: Alert and oriented. No acute distress Cardiac: Regular rate and rhythm, no murmurs appreciated Respiratory: Lungs clear to auscultation bilaterally, No increased work of breathing Abdominal: Soft, non-tender, non-distended. Bowel sounds present. Extremities: No lower extremity edema, calves non-tender bilaterally Psych: mood affect congruence Principal Diagnosis Fecal impaction, constipation Discharge Exam General: 78 yo male sitting up in bed eating lunch, NAD, reports feels well HEENT: head atraumatic, normocephalic, mmm, trachea midline Chest: scar from CABG noted, healing, no drainage/evidence for infection Resp: diminished in the bases but no overt wheezing/crackles on room air, able to talk in complete sentences CV: RRR, +systolic murmur, no significant peripheral edema or calf tenderness GI: +BS, soft/NT : no flores MSK/Neuro: nonfocal, answering questions appropriately, able to follow commands Psych: AOx3, cooperative with exam Discharge Data Allergies Allergy/AdvReac Type Severity Reaction Status Date / Time vancomycin Allergy Severe Unknown Verified 10/11/23 19:38 Consultations 10/11/23 19:13 ED Decision to Admit Stat 10/12/23 07:46 Consult Cardiology Routine 10/12/23 08:07 Consult Pulmonology Routine Ordered Studies Chest X-Ray 10/11/23 16:12 SINGLE VIEW CHEST CLINICAL HISTORY: Sepsis. FINDINGS: An AP, portable, upright chest radiograph is compared to study dated 08/16/2023. Correlation is made with chest CT dated 05/07/2023. The patient is status post midline sternotomy and cardiac valve surgery. The heart is mildly enlarged noting atherosclerotic calcification of the thoracic aorta. The pulmonary vasculature is noncongested. Chronic interstitial thickening is similar to previous. There is a moderate left pleural effusion with left basilar consolidation. The right lung appears clear. No pneumothorax is seen. The skeletal structures are osteopenic. The bony thorax is grossly intact. IMPRESSION: 1. Cardiomegaly without radiographic evidence of congestive failure. 2. Moderate left pleural effusion with dependent consolidation. ACT 112: Negative or not required by law. Electronically signed by: Oscar Bishop M.D. 10/11/2023 5:15 PM Abdomen/Pelvis CT 10/11/23 16:50 CT SCAN OF THE ABDOMEN AND PELVIS WITHOUT IV CONTRAST CLINICAL HISTORY: Generalized abdominal pain. Constipation. COMPARISON STUDY: No priors. TECHNIQUE: CT scan of the abdomen and pelvis is performed from the lung bases to the proximal femora. Images are reviewed in the axial, sagittal, and coronal planes. IV contrast was not administered for this examination. Note that the examination was performed in significantly suboptimal fashion without oral and IV contrast. A dose lowering technique was utilized adhering to the principles of ALARA. CT DOSE: 1084.86 mGy.cm FINDINGS: Lung bases: The heart is large and without pericardial effusion. The coronary arteries and mitral annulus are densely calcified. The patient is status post midline sternotomy and aortic valve surgery. There is a chronic-appearing thick walled pleural collection at the left lung base chest CT dated 05/07/2023, which has decreased in size from the 05/07/[address] There is scarring/atelectasis at the left lung base. No airspace consolidation is seen typical for pneumonia. A small hiatal hernia is noted. Liver: The unenhanced liver is normal in size, contour, and attenuation. There is no intrahepatic biliary ductal dilatation. Gallbladder: Unremarkable. Spleen: Normal in size and attenuation. There are calcified splenic granulomas. Pancreas: Unremarkable. Adrenal glands: Unremarkable. Kidneys: The unenhanced kidneys demonstrate mild cortical atrophy and are without hydronephrosis. There are renal vascular calcifications. No renal calculi are identified and there is no ureteral stone. A 1.4 cm cyst is noted on the left. Abdominal vasculature: There is advanced atherosclerotic calcification of the abdominal aorta which is normal in caliber. Bowel: The rectal wall appears circumferentially thickened with mild surrounding infiltration. There is mild to moderate colonic diverticulosis without CT evidence of acute diverticulitis. No bowel obstruction is seen. The appendix is well-visualized and normal. Peritoneum: There is no intraperitoneal free air or abdominal ascites. There is a fat-containing umbilical hernia. Lymphadenopathy: None. Pelvic viscera: The prostate gland is enlarged and heterogeneous. The bladder wall is thickened/trabeculated indicating chronic outlet obstruction. There are bilateral fat-containing groin hernias. Skeletal structures: The skeletal structures are osteopenic. Moderate lumbosacral spondylosis is observed. Degenerative sclerosis is noted in the sacroiliac joints. No lytic or blastic lesions are seen. IMPRESSION: 1. The rectal wall appears thickened and there is perirectal infiltration. Correlate clinically for evidence of a nonspecific proctitis. If warranted this could be further assessed with direct visualization. 2. Cardiomegaly and a chronic appearing left pleural fluid collection are seen in the lower chest. 3. Colonic diverticulosis without CT evidence of acute diverticulitis. 4. Additional findings as above. ACT 112: Negative or not required by law. Electronically signed by: Oscar Bishop M.D. 10/11/2023 7:17 PM Hospital Course (1) Pleural effusion on left: (2) Fecal impaction: (3) FOLRENTINO (acute kidney injury): (4) Acute hypotension: (5) HTN (hypertension): (6) Dyslipidemia: (7) DM type 2 (diabetes mellitus, type 2): (8) Coronary artery disease involving coronary bypass graft: (9) Positive blood cultures: (10) Proctitis: Plan 78 year old male with PMH significant for CAD, pleural effusion, HTN, HLD, T2DM presenting with concern for constipation. Initial presentation with soft blood pressures and elevated lactate initially concerning for possible sepsis - however, lactate corrected with fluid resuscitation and no obvious infectious source on work up. Transient hypotension, likely vagal response to bowel movement, now corrected. Follow blood cultures but will discontinue empiric abx. * Of note, patient w/ hx CAD (s/p cath November 2022, found w/ 70% obstruction distal L main, 100% obstruction in mid LAD w/ developement of collaterals as well as 90% obstruction over large diagonal vessel of LAD and diffuse disease within R coronary causing 40-45% obstruction and severe aortic stenosis. Underwent CABD x4 on 12/07/2022 with aortic valve replacement. Post-op course complicated by bradycardia requiring temporary pacemaker and paroxysms of afib). Constipation, Fecal Impaction: S/p milk and molasses enema with subsequent large bowel movement in ER for CT A/P with rectal wall thickening without evidence of bowel obstruction Patient likely to benefit from routine bowel regimen --> Discussed w/ patient and given CKD cautious miralax however can continue once daily but recommended colace BID routinely as well as as needed suppository/enema if ineffective/not moving his bowels at least every other day. Discussed HOLDING his home PO iron supplementation in the meantime. Abdomen soft/nontender, eating lunch without issue and stable for dc on bowel regimen FLORENTINO: Cr 2.11 on admission, suspect prerenal etiology in the setting of volume contraction. s/p 2L NSS in ER, Cr improved 1.72 and closer to baseline (prior 1.5s in system) Home meds continued and did not appear dehydrated on exam Tolerating PO diet F/u PCP Pleural Effusion: Chronic left-sided pleural effusion without evidence of respiratory compromise Pulm consulted, asymptomatic from such --> see note, to have f/u with Dr Patricia Acute Hypotension - Soft bp on admit, dip w/ BP. 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 - patient is asymptomatic, no indication for acute treatment --> repeat EKG w/o evidence Discussed w/ cardiology -- see note -- no evidence for WPW, likely IVCD due to recent CABG/aortic valve (cow per patient) --> f/u usual ict analyst at [facility], alerted of symptoms to be concerned Trop negative on admit T2DM: Blood glucose checks ACHS Lantus 5U QAM Sliding scale insulin for meal coverage while inpatient resumed home meds at dc HTN: Hypotension on admit 2nd to above, improved since BP and IVF Home meds resumed and BP 138/72 prior to dc HLD: Continue home Atorvastatin CAD: Continued home aspirin, losartan, metoprolol BP stable as above, no CP reported. No issues on telemetry Blood cultures positive 1/ GPC, PCR biofire w/ staph. ?contaminant --> SUSPECTED CONTAMINANT WBC wnl, afebrile Did get dose Cefepime x1 in ER on admission Saw patient, doing well, no fever, no chills, no abdominal pain/nausea or vomiting and tolerating diet Agreeable for discharge on bowel regimen as above and will call if any changes/further positive cultures DVT proph: Lovenox Sq while inpatient Total Time Total Time Spent Total Time Spent (In Minutes): 45 Discharge Plan Discharge Items Patient Disposition: Home - Self-Care Reason For Visit: CONSTIPATION Discharge Diagnosis: Constipation Goals: You have been hospitalized for an acute medical problem. During your stay at [facility], we have made an effort to correct the problem that brought you to the hospital while keeping you as comfortable as possible. Medi cations were used to bring your condition under control and your discharge instructions will include directions for any medications you should take after leaving the hospital. Please make sure you see your Primary Care Provider as part of your follow up plan. Activity: As commented below Non-emergency contact: Primary Care Provider, Shot Lighter and Glass Cleaning Machine Tender Call non-emergency contact if: you have any medication questions, your symptoms worsen, your pain is not controlled, your pain is worsening and your pain is unusual for you Follow-up/Referrals: Henrry Gonzalez MD [Primary Care Provider] - (PLEASE CALL YOUR PRIMARY CARE PROVIDER TO SCHEDULE A FOLLOW-UP HOSPITAL DISCHARGE APPOINTMENT WITHIN 7-10 DAYS) Diet: Carb Consistent or DM2 and Heart Healthy Addtl Attending Provider Instructions: You have been hospitalized for complaints of constipation. This is likely due to the oral iron you have been on and you should HOLD OFF on taking further iron supplementation at discharge in the meantime. Your CT scan was NEGATIVE for obstruction but noted a lot of stool in your rectum. You were provided an enema in the emergency department with good results. We have sent in prescription for colace to be taken twice daily to help keep your stools soft as well as miralax once daily to dissolve in water to help with stimulant effect. You may need occasional suppository/enema if ineffective but hopefully now that the impacted stool has been let loose you should not have continued issues. Please ensure moving your bowels at least every other day to prevent issues. [facility] regarding your CABG/valve replacement.. Blood cultures were positive in one of four bottles but likely are contaminant as you have not had elevated white count or fever of signs of infection on examination and antibiotics were deferred. We will call you if blood culture results change, but please also note if you have any fever/chills, chest pain, increased shortness of breath you should return to the emergency department. Please follow up with primary care in the next week to monitor your progress. It has been a pleasure being a part of the medical team providing for you while you have been in the hospital. Take care! Pending Studies at Discharge: Yes Studies:: blood cultures -- 1/4 bottles positive (contaminant suspected), pending Stand-Alone Forms: My [facility], Smoking Cessation Medications and DC Order Prescriptions: New polyethylene glycol 3350 [Miralax] 17 gram Powder In Packet 17 g PO DAILY Qty: 30 0RF docusate sodium [Colace] 100 mg capsule 100 mg PO BID Qty: 30 0RF Continued multivitamin Tablet 1 tab PO DAILY atorvastatin 40 mg Tablet 40 mg PO DAILY torsemide 20 mg tablet 20 mg PO QAM omega-3 fatty acids 1,000 mg Capsule 1,000 mg PO DAILY aspirin 81 mg Tablet,Delayed Release (Dr/Ec) 81 mg PO DAILY losartan 25 mg Tablet 25 mg PO DAILY metoprolol succinate 25 mg Tablet Extended Release 24 Hr 25 mg PO DAILY sertraline 50 mg tablet 50 mg PO DAILY insulin aspart U-100 [Novolog FlexPen U-100 Insulin] 100 unit/mL (3 mL) Insulin Pen 0 unit SUBCUT USEASDIRECTD Rx Instructions: PRN IN AM, takes 6 units if BSG is >90 insulin glargine [Lantus Solostar U-100 Insulin] 100 unit/mL (3 mL) Insulin Pen 12 unit SUBCUT QPM PRN (Reason: .BSG >200) Discharge Orders: Discharge Order (Routine); Ordered 10/12/23 Ordered By: Faye Spangler Admission Data Admit Date/Time: 10/11/23 19:44 Attending Provider: Clifford Randle Admit Provider: David Chowdhury Primary Care Provider: Henrry Gonzalez Other Providers: Ricardo Rivear; Nick Marquez; Eric Hassan Other Interventions: Discharge Summary Assessment (RN) Last Done: 10/12/23 13:04 Supervising Physician Co-Signing Physician Notes The patient was not seen by me. The chart was reviewed. Case discussed with TUAN Hilario. Agree with assessment and plan. The patient is medically stable for discharge today, October 11 Coding Level of Care Code 13663 INP/OBS DISCH >30 MIN Diagnoses Pleural effusion on left J90 Fecal impaction K56.41 FLORENTINO (acute kidney injury) N17.9 Acute hypotension I95.9 HTN (hypertension) I10 Dyslipidemia E78.5 DM type 2 (diabetes mellitus, type 2) E11.9 Coronary artery disease involving coronary bypass graft I25.810 Positive blood cultures R78.81 Proctitis K62.89
[2023-10-12] MEDS: POLYETHYLENE (MIRALAX) 17 GM PACK PO SCH (12:57)
--- NOTE | 2023-10-12 13:15 | Cardiology Consultation ---
Date of Consultation October 12, 2023 Assessment & Plan (1) Abnormal ECG: (2) Pleural effusion on left: (3) CAD (coronary artery disease): (4) S/P CABG x 4: (5) S/P aortic valve replacement with bioprosthetic valve: (6) Paroxysmal A-fib: Plan 78-year-old man with extensive cardiac history who presented for noncardiac complaint (constipation) and was incidentally noted to have an abnormal ECG. Review of ECGs suggests this is an interventricular conduction delay (likely related to his recent CABG ) and not Ldklg-Qrswvnlhr-Ehcsv syndrome. Even if WPW were to be present, in the absence of any symptoms of tachypalpitations, presyncope, or syncope in a patient this age, conservative management would be warranted. Would simply continue his low-dose beta-lisa (metoprolol succinate 25 mg daily), made him aware of warning symptoms that should prompt further evaluation. There is no evidence of ongoing myocardial ischemia, congestive heart failure, or recurrent dysrhythmia. He was on apixaban at one point as anticoagulation for paroxysmal atrial fibrillation, but this is not on his home medication list, perhaps his atrial fibrillation was perioperative at the time of his CABG and he was felt to be low risk of recurrence. Defer to outpatient cardiology regarding risk/benefits of chronic anticoagulation. He was doing well at the time of my evaluation and there would be no cardiac reason for him to remain hospitalized. Defer to hospitalist regarding noncardiac issues and timing of discharge. Case discussed with Dr. Randle. Will sign off, please contact if change in status or new cardiac issues arise. History of Present Illness Reason for Consultation: new WPW Requesting Physician: Clifford Randle MD Attending Physician: Clifford Randle MD History of Present Illness 78-year-old man with history of CAD (status post four-vessel CABG November 2022), status post bioprosthetic AVR, HFmEF (EF 45%), chronic renal insufficiency (transiently on dialysis in the past), PAD (status post left leg arterial bypass surgery), DM (on insulin), paroxysmal atrial fibrillation (metoprolol/apixaban), who was admitted 10/11/2023 with constipation and possible sepsis (subsequently ruled out), incidentally noted on ECG to have 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 At recent baseline, he has been reasonably physically active and noted no dyspnea exertion, chest discomfort, subjective palpitations, orthostatic lightheadedness, presyncope, or syncope. He normally has a daily bowel movement and hadn't had any for several days, presented to the emergency department and was admitted for further evaluation. Evaluation here notable for a moderate-sized left pleural effusion without evidence of heart failure, troponin was normal (16.1). At the time of my evaluation this morning, he was comfortable and had no cardiopulmonary or gastrointestinal complaints. Telemetry overnight showed sinus rhythm with PACs and PVCs, rate 60 to 80 bpm, no dysrhythmias. Allergies Allergy/AdvReac Type Severity Reaction Status Date / Time vancomycin Allergy Severe Unknown Verified 10/11/23 19:38 Home Medications Medication Instructions Recorded Confirmed Type aspirin 81 mg tablet,delayed 81 mg PO DAILY 10/11/23 10/11/23 History release atorvastatin 40 mg tablet 40 mg PO DAILY 10/11/23 10/11/23 History insulin aspart U-100 100 unit/mL 0 unit subcut USEASDIRECTD 10/11/23 10/11/23 History (3 mL) subcutaneous pen (Novolog FlexPen U-100 Insulin aspart) insulin glargine 100 unit/mL (3 12 unit subcut QPM PRN .BSG >200 10/11/23 10/11/23 History mL) subcutaneous pen (Lantus Solostar U-100 Insulin) losartan 25 mg tablet 25 mg PO DAILY 10/11/23 10/11/23 History metoprolol succinate 25 mg 25 mg PO DAILY 10/11/23 10/11/23 History tablet,extended release 24 hr multivitamin 1 tab PO DAILY 10/11/23 10/11/23 History omega-3 fatty acids 1,000 mg 1,000 mg PO DAILY 10/11/23 10/11/23 History capsule sertraline 50 mg tablet 50 mg PO DAILY 10/11/23 10/11/23 History torsemide 20 mg tablet 20 mg PO QAM 10/11/23 10/11/23 History docusate sodium 100 mg capsule 100 mg PO BID #30 caps 10/12/23 Rx (Colace) polyethylene glycol 3350 17 gram 17 g PO DAILY #30 ea 10/12/23 Rx oral powder packet (Miralax) Patient History Medical History Coronary artery disease involving coronary bypass graft Pneumothorax Pleural effusion Ex-smoker Dyslipidemia HTN (hypertension) DM type 2 (diabetes mellitus, type 2) Hyperglycemia Social History Smoking Status: Former smoker Tobacco Type: Cigarettes Age Started Using Tobacco: 19; Age Quit Using Tobacco: 48; Do You Dip or Chew Tobacco: No; Hx Alcohol Use: Yes Alcohol type: beer Hx Substance Use: No Preferred Language: Scottish Communication Ability: Effective Drafting Teacher Required: No Beliefs That Will Affect Care: None Current Living Situation: Spouse Current Living Situation Comment: lives with Feels Safe at Home: Yes Assistive Devices: Denture - Upper and Glasses Physical Exam Physical Exam: Elderly white male who appeared quite comfortable. Afebrile. BP normotensive. Pulse 77 bpm and regular with occasional ectopy. Respirations 18 and unlabored. Skin: no ecchymoses or generalized lesions. HEENT: unremarkable. Neck: JVP at the clavicle at 90 degrees, no carotid bruits. Lungs: clear bilaterally. No wheezing, crackles, or accessory muscle use. Cardiac: regular rhythm, normal S1-2, 2/6 right upper sternal border crescendo/decrescendo systolic ejection murmur which is nonradiating, no diastolic murmur. Abdomen: benign. Extremities: no edema, pulses intact. Neurologic: normal affect and conversation, nonfocal. Results & Data Vital Signs (Past 12 Hours) Vital Signs Temp Pulse Pulse Resp BP BP Pulse Ox 10/12/23 11:22 99.0 F 77 18 107/56 L 90 10/12/23 07:56 98.2 F 73 18 138/72 96 10/12/23 07:12 76 10/12/23 03:07 97.7 F 74 18 143/74 H 94 O2 Del Method 10/12/23 11:22 Room Air 10/12/23 07:56 Room Air 10/12/23 07:12 10/12/23 03:07 Room Air Diagnostic Findings Initial ECG shows sinus rhythm at 65 bpm with right bundle branch block, old inferior OH, and possible Reawz-Wtisjygqv-Ugqau (not noted in reading but stated in comparison that "Zermz-Omlqsxbcb-Jdkjf is now present"). To my eye, ECG appears to show an atypical right bundle branch block or intraventricular conduction delay, which is new compared with 2017 study. However, there is a discernible isoelectric MA segment, weighing against the likelihood that this represents WPW. Repeat ECG today showed sinus rhythm, inferior infarct, old anterolateral infarct, normal MA segments and no evidence of WPW. Chest x-ray showed cardiomegaly without evidence of heart failure, moderate left pleural effusion with dependent consolidation. Echocardiogram March 2023 showed EF 40-45% with paradoxical septal motion but no focal wall motion abnormalities. AVR was functioning well. Mild to moderate TR. PG Care Time/CCT Total # of Minutes Spent Total Time Spent with Patient: Total time spent is greater than 50% in coordination of care (as documented) at patient's floor/unit and/or counseling patient: Coding Level of Care Code 15144 INT INP/OBS CARE 3/75MIN Diagnoses Abnormal ECG R94.31 Pleural effusion on left J90 CAD (coronary artery disease) I25.10 S/P CABG x 4 Z95.1 S/P aortic valve replacement with bioprosthetic valve Z95.3 Paroxysmal A-fib I48.0
--- NOTE | 2023-10-12 13:26 | Electrocardiogram Report ---
Test Reason : Blood Pressure : / mmHG Vent. Rate : 071 BPM Atrial Rate : 071 BPM P-R Int : 196 ms QRS Dur : 120 ms QT Int : 428 ms P-R-T Axes : 047 -66 072 degrees QTc Int : 465 ms Sinus rhythm with Premature supraventricular complexes Left axis deviation Non-specific intra-ventricular conduction delay Old Inferior infarct Old Anterolateral infarct Abnormal ECG When compared with ECG of 11-OCT-2023 16:17, Premature supraventricular complexes are now Present Otherwise no significant change Confirmed by Nick Marquez ([id number]) on 10/12/2023 1:26:10 PM Referred By: [facility] Confirmed By:Nick Marquez
== END 2023-10-12 16:14 | disposition home or self-care (01) ==
LOC: ED 14:21 → 2N 14:21 → SUATTDRO 19:44 → 2N 20:27